=== PATIENT | female | born 1945 | race Caucasian/White ===

== ENCOUNTER 2016-11-13 00:36 | Inpatient (IN) | payer MEDICARE, MEDICAID ==
[2016-11-13] VITALS (13 sets, daily range): BP systolic 122–169; BP diastolic 53–86; PULSE 62–87; RESP 14–20; O2SAT 92–95
[~2016-11-13] VITALS: Ht 162.6 cm; Wt 91.8 kg
[~2016-11-13 00:36] MED LIST: AMLO5TAB90 PO; ASPI81TA2 PO; DICL75TA6 PO; HYDR-4150 PO; LEVO125T2 PO; METF10002 PO; METO25TA99 PO; OMEP40CA3 PO; OXYC1TAB24 PO; SENN8.8S9 PO; SITA100T PO; ZES10 PO
--- NOTE | 2016-11-13 00:42 | ED.REPORT ---
HPI-General Illness Date of Service Nov 13, 2016 ED Provider: Chris Boucher MD 71 year old female with a history of GI bleed, GERD, colitis, CAD with stent placement, and NIDDM presents to the ER via EMS after being found down for two days. Patient began vomiting "black coffee grounds" and having diarrhea two days ago while sitting on the couch, and then self-assisted to the ground. She was then too weak to move until today when she managed to crawl to the phone and call her daughter who subsequently called EMS and went to the patient's residence to assist her. Today she reports bright red blood in her stool. She denies chest pain, SOB, LOC, head pain, neck pain, and any trauma secondary to the fall. Patient is a poor historian. Nursing Notes Stated Complaint: FOUND DOWN X 2 DAYS Nursing Notes Reviewed: Yes Allergies: Coded Allergies: Penicillins (Verified Allergy, Unknown, UNKNOWN (HAS TAKEN CEPHALOSPORINS W/O PROBLEMS), 11/20/13) Sulfa (Sulfonamide Antibiotics) (Unverified Allergy, Unknown, UNKNOWN, 11/20) acetaminophen (Unverified Allergy, Unknown, UNKNOWN (FROM HYDROCODONE), 11/20/13) hydrocodone (Unverified Allergy, Unknown, UNKNOWN, 11/20/13) Scheduled AmLODIPine-Expunged Drug, Do Not Renew! (AmLODIPine-Expunged Drug, Do Not Renew! ) 5 Mg Tablet 10 MG PO DAILY Aspirin-Expunged Drug, Do Not Renew! (Aspirin-Expunged Drug, Do Not Renew!) 81 Mg Tablet 81 MG PO DAILY Diclofenac ER (Diclofenac ER) 75 Mg Tablet.dr 75 MG PO d Hydrocodone/Acetaminophen ([place] 5-325 Tablet) 1 Each Tablet 1-2 EACH PO Q 4- 6HRS PRN Levothyroxine-Expunged Drug, Do Not Renew! (Levoxyl-Expunged Drug, Do Not Renew! ) 125 Mcg Tablet 150 MCG PO DAILY Lisinopril-Expunged Drug, Do Not Renew! (Lisinopril-Expunged Drug, Do Not Renew! ) 10 Mg Tablet 10 MG PO DAILY Metoprolol Succinate ER (Metoprolol Succinate ER) 25 Mg Tab.er.24h 12.5 MG PO BID Omeprazole (Prilosec) 40 Mg Capsule.dr 40 MG PO BID Sennosides (Senexon) 8.8 Mg/5 Ml Syrup 8.8 MG PO BID PRN Sitagliptin Phosphate (Januvia) 100 Mg Tablet 100 MG PO DAILY Scheduled PRN Metformin (Metformin) 1,000 Mg Tablet 1,000 MG PO BID PRN PRN bid oxyCODONE-Acetaminophen 5-325 mg (oxyCODONE-Acetaminophen 5-325 mg) 1 Each Tablet 1-2 EACH PO Q 4-6HRS PRN PRN PRN For Pain General Time Seen by MD: 00:42 Chief Complaint Other (Found Down x2 Days) Hx Obtained From: Patient, EMS Arrived By: Ambulance Sudden in Onset?: No Onset Occurred: 2 days ago Symptom Duration: Since onset Caused by: Fall on ground Context: Occurred at: Home injury Associated with: Reports: Nausea, Vomiting, Denies: Chest pain, Shortness of breath Additional Notes: Diarrhea Bloody stool Context Related History: Reports Coronary artery disease, Reports Diabetes mellitus, Reports GERD Past Medical History Past Medical History CT Thyroid disease HTN Hyperlipidemia Colitis GERD UTI Reports: Coronary artery disease, Diabetes mellitus Reports: GI bleed Past Surgical History Cardiac stent placement x4 Left knee replacement ORIF bilateral ankles Smoking History Former Smoker Review of Systems Full Review of Systems Constitutional: Reports: Chills, Denies: Fever Respiratory: Denies: Non-productive cough, Shortness of breath Cardiovascular: Denies: Chest pain GI: Reports: Bloody/tarry stool, Diarrhea, Hematemesis ("black coffee grounds") , Hematochezia, Nausea, Vomiting, Denies: Abdominal pain Musculoskeletal: Denies: Back pain, Extremity pain, Joint pain, Lumbar pain, Neck pain, Thoracic pain Complete sys rev & neg: except as marked. Physical Exam Vital Signs Vital Signs Date Time Temp Pulse Resp B/P Pulse Ox O2 Delivery O2 Flow Rate FiO2 11/13/16 03:00 77 18 93 Room Air 11/13/16 01:30 79 18 133/65 94 Nasal Cannula 2 11/13/16 01:01 36.5 87 18 169/68 94 Room Air Initial VS: Reviewed Head / Eyes: Atraumatic, Normocephalic Neck: Supple, Non-tender, Full range of motion Extremities: Vascular intact, Neuro intact, No swelling, No tenderness Skin: Warm, Dry, No cyanosis Neurologic: Alert, Oriented, Nonfocal General/Constitutional: Awake, Alert, Well developed, Well nourished Appearance / Presentation: Positive: Pale Respiratory / Chest: Breath sounds NL, No respiratory distress, No rales, No rhonchi, No wheezing Cardiovascular: Regular rhythm, Heart sounds NL, Cap refill not delayed, Peripheral circulation NL Heart Rate / Rhythm: Positive: Tachycardia Abdomen: Soft, No guarding, No rebound Tenderness/Guarding/Rebound: Positive: Tender diffuse Interpretation & Diagnostics Lab Results Interpretation Result Diagram: 11/13/16 0116 11/13/16 0116 Test 11/13/16 01:16 White Blood Count 15.8th/mm3 (3.8-10.1) Red Blood Count 4.55mil/mm3 (3.90-5.20) Hemoglobin 13.4g/dL (12.0-15.6) Hematocrit 40.8% (35.0-46.0) Mean Corpuscular Volume 90fL (81-100) Mean Corpuscular Hemoglobin 29.5pg (27.0-35.0) Mean Corpuscular Hemoglobin Concent 32.8% (32.0-37.0) Red Cell Distribution Width 13.2% (12.3-15.4) Platelet Count 296bil/L (150-400) Neutrophils (%) (Auto) 83.8% (40-74) Lymphocytes (%) (Auto) 8.6% (14-46) Monocytes (%) (Auto) 7.2% (4-12) Eosinophils (%) (Auto) 0.1% (0-5) Basophils (%) (Auto) 0.3% (0-3) Hematology Comments Rbc Prothrombin Time 9.4sec (8.1-12.5) Prothromb Time International Ratio 0.88ratio Sodium Level 133mEq/L (134-144) Potassium Level 4.9mEq/L (3.5-5.2) Chloride Level 89mEq/L (97-108) Carbon Dioxide Level 23mmol/L (18-29) Blood Urea Nitrogen 93mg/dL (8-27) Creatinine 1.88mg/dL (0.57-1.00) Estimat Glomerular Filtration Rate 38mL/min (>59) Glucose Level 277mg/dL (60-99) Calcium Level 10.8mg/dL (8.5-10.1) Magnesium Level 3.3mg/dL (1.6-2.6) Total Bilirubin 0.6mg/dL (0.0-1.2) Aspartate Amino Transf (AST/SGOT) 49U/L (0-50) Alanine Aminotransferase (ALT/SGPT) 5U/L (0-32) Alkaline Phosphatase 136U/L (25-165) Total Creatine Kinase 356U/L (21-215) Troponin T 0.010ug/L (0.0-0.011) Total Protein 8.5g/dL (6.4-8.4) Albumin 3.6g/dL (3.4-5.0) ECG Interpretation ECG Interpretation: Atrial fibrillation, rate 80 Old anterior infarct Prolonged QT interval Time: 01:26 Interpreted by: ED physician X-Ray Chest Interpretation Chest Xray Interpretation: Left lower lobe infiltrate. View: Portable, 1 view Interpretation / Wet Read by: Wet read ED physician CT Abd / Pelvis Interpretation CONCLUSION: Findings consistent with proctocolitis. Electronically signed by Milton Varela MD Study type: Abdominal CT IV contrast Interpretation / Wet Read by: Interpret - Radiologist Re-Eval/Medical Decision Med Decision/Clinical Course 71-year-old female presents with three days of melena and coffee-ground emesis, with two days of being on the floor unable to rise. She has no evidence of rhabdomyolysis, moderate acute kidney injury apparent, and at this point, a normal hemoglobin. She remains weak and unable to get up even with some assistance. She was begun with Protonix 80 mg bolus and IV drip. As her hemoglobin is stable at this point, we can discontinue the drip and continue with high-dose Protonix. She was begun also empirically with octreotide, but will have it discontinued now also. She is admitted now to the medicine service. Consultation with GI in the morning. Transported now improved condition. Source of Hx: Old records Consultation : Referral / Consult Name: Neal Norris MD Consulted With: Hospitalist Call Returned at: 04:30 Log Handling Equipment Operator: Agrees with eval, Agrees with plan, Accepts admit Counseled Regarding: Diagnosis, Lab results, Need for admission Discharge & Departure Primary Impression: GI bleed GI bleed type/associated pathology: melena Qualified Code: K92.1 - Melena Additional Impressions: Generalized weakness Dehydration Vomiting Vomiting type: unspecified Vomiting Intractability: non-intractable Nausea presence: with nausea Qualified Code: R11.2 - Nausea with vomiting, unspecified Acute kidney injury Disposition: ADMITTED TO HOSPITAL Discharge Condition All VS Reviewed: Yes Condition: Stable Referrals: NOPCP (PCP) Scribe Attestation Portions of this note were transcribed by Yannick Lee. I, Dr. Boucher, personally performed the history, physical exam and medical decision-making; I reviewed and confirmed the accuracy of the information in the transcribed note. Signed by: Ap Gold. 11/13/2016 - 04:32 Chris Boucher MD Nov 13, 2016 00:42 YANNICK LEE Nov 13, 2016 00:58
[2016-11-13] MEDS ORDERED: 0.9% Sodium Chloride 1,000 ML IV ONE (00:56)
[2016-11-13] MEDS ORDERED: Pantoprazole Inj 80 MG, Pharmacy To Mix 1 EA in 0.9% Sodium Chloride 80 ML IV ONE ×2 (01:00)
[2016-11-13] MEDS ORDERED: Pantoprazole 4 mg/mL 10 mL Inj IVPUSH ONE (01:00)
[2016-11-13] MEDS ORDERED: Octreotide Inj 500 MCG in 0.9% Sodium Chloride 100 ML IV ONE (01:00)
[2016-11-13 01:38] LABS: INR 0.88 ratio
[2016-11-13 01:48] LABS: TROPONIN T 0.01 ug/L (0.0-0.011)
[2016-11-13 02:09] LABS: BASOPHILS % (AUTO) 0.3 % (0-3); EOSINOPHILS % (AUTO) 0.1 % (0-5); MONOCYTES % (AUTO) 7.2 % (4-12); Mean Corpuscular Hemoglobin 29.5 pg (27.0-35.0); Mean Corpuscular Volume 90 fL (81-100); NEUTROPHILS % (AUTO) 83.8 % (40-74); Platelet Count 296 bil/L (150-400)
[2016-11-13 02:10] LABS: Magnesium 3.3 mg/dL (1.6-2.6)
[2016-11-13] MEDS ORDERED: 0.9% Sodium Chloride 1,000 ML IV SCH (02:15)
[2016-11-13] MEDS ORDERED: Polyethylene Glycol (PEG) 17 Gm Powder PO PRN (04:35)
[2016-11-13] MEDS ORDERED: Ondansetron 2 mg/mL 2 mL Inj IVPUSH PRN (04:35)
[2016-11-13] MEDS ORDERED: Alum-Mag Hydrox-Simeth 30 mL Suspension PO PRN (04:35)
[2016-11-13 05:41] LABS: APPEARANCE,URINE SLIGHTLY CLOUDY (CLEAR,HAZY); COLOR,URINE DARK YELLOW (YELLOW); OCCULT BLOOD,URINE NEGATIVE (NEGATIVE); PH,URINE 5.5 (5.0-8.0); UROBILINOGEN,URINE NORMAL (NORMAL)
[2016-11-13] MEDS ORDERED: Glucose 40% Oral Gel 15 Gm Tube PO PRN (05:45)
[2016-11-13] MEDS: 0.9% Sodium Chloride 1,000 ML IV SCH ×2 (06:08→15:57)
--- NOTE | 2016-11-13 06:25 | PCM.HPMED ---
Subjective Date of Service Nov 13, 2016 Primary Provider: Admitting Physician: Neal Norris MD Primary Care Physician: Nopcp Attending Physician: Neal Norris MD Admit Status: From the Emergency Department, Full Admit, [facility] Telemetry Chief Complaint: Coffee ground vomiting with weakness History of Present Illness: Leda Moore is a 71 year old female with a history of GI bleed, GERD, Coronary artery disease with stent placement, and Diabetes presents to [facility] emergency department via EMS after being found down for two days. Patient began vomiting "black coffee grounds" and having diarrhea two days ago while sitting on the couch, and then slide to the ground. She was then too weak to move until today when she managed to crawl to the phone when her daughter was calling her. Patient also reports bright red blood in her stool. She denies chest pain, dyspnea or complete loss of consciousness and also denies any trauma secondary to the fall. Daughter then subsequently called EMS and went to the patient's residence to assist her. Denies any new medications. Lives independently. Patient reports she has not seen a doctor for years. Denies taking any NSAIDS recently or Alcohol intake Case discussed with Dr Boucher, IV fluids initiated and Protonix drip also started. Patient still weak and appeared dehydrated Review of Systems: Pertinent positives as noted in HPI. All other systems were reviewed and are negative Allergies Coded Allergies: Penicillins (Verified Allergy, Unknown, UNKNOWN (HAS TAKEN CEPHALOSPORINS W/O PROBLEMS), 11/13/16) Sulfa (Sulfonamide Antibiotics) (Unverified Allergy, Unknown, UNKNOWN, ) acetaminophen (Unverified Allergy, Unknown, UNKNOWN (FROM HYDROCODONE), 11/13/16) hydrocodone (Unverified Allergy, Unknown, UNKNOWN, 11/13/16) Home Medications Information not available PMH 1. Diabetes, type 2. 2. Hypertension. 3. Hyperlipidemia. 4. Coronary artery disease, status post [place] in June 2008 in which she was admitted for non ST elevation [place] and was treated with two drug-eluting stents of the obtuse margin branch of the circumflex, and previously had a drug-eluting stent of the 2nd obtuse marginal branch in April 2004, with mid left anterior descending interventional therapy in August 2005. Accordingly, the patient said she has had four stents total. 5. Previous heavy tobacco use, with a 30 pack-year history, which she said she quit in 2004. 6. Dyslipidemia. 7. Hypothyroidism. 8. GERD 9. history of GI bleeding, details unclear . Surgical History Cardiac stent placement x4 Left knee replacement ORIF bilateral ankles Hysterectomy. Ventral hernia repair and gastric surgery of unknown type. Family History strong family history of coronary disease. Social History Hx Alcohol Use: No Hx Substance Use: Yes (Marijuana) Hx Tobacco Use: Yes Smoking Status: Former Smoker Living Arrangement: Alone Exam Vital Signs Vital Sign - Last Date Time Temp Pulse Resp B/P Pulse Ox O2 Delivery O2 Flow Rate FiO2 11/13/16 05:21 37.2 74 16 122/86 92 Room Air 11/13/16 01:30 2 Intake and Output 11/12/16 11/12/16 11/13/16 Cumulative From/Thru 15:00 23:00 07:00 11/13/16 01:01 - 11/13/16 04:42 Intake Total 2000 ml 2000 ml Balance 2000 ml 2000 ml Intake IV Total 2000 ml 2000 ml Exam General: Alert, Oriented X3, Cooperative, No acute Distress Eyes: PERRLA, Scleral Anicteric Mouth: Mouth Normal, Mucous Membranes dry Neck: Supple, no Thyromegaly, trachea central. Chest & Lungs: Clear to auscultation & percussion, No adventitious breath sounds, no crackles, no wheeze Cardiovascular: Normal S1, Normal S2, No Murmurs/Rubs/Gallops, Regular Rate/ Rhythm, (No JVD, no peripheral edema) Pulses: Radial (present and equal), Dorsalis Pedi (present and equal) Abdomen: Soft, Non-tender, Non-distended, Normoactive bowel tones. Musculoskeletal: Unremarkable. Normal range of motion, no swollen or erythematous joints Extremities: No edema, no cyanosis, no clubbing. Skin: No rashes. Warm and dry, no erythematous areas Neurological: Grossly neurologically intact, has generalized weakness, Normal Speech, Sensation Intact Lymphatic: Lymph nodes Cervical and Axillary not palpable. Lab and Diagnostics Labs Laboratory Tests Test 11/13/16 01:16 11/13/16 04:55 White Blood Count 15.8th/mm3 (3.8-10.1) Red Blood Count 4.55mil/mm3 (3.90-5.20) Hemoglobin 13.4g/dL (12.0-15.6) Hematocrit 40.8% (35.0-46.0) Mean Corpuscular Volume 90fL (81-100) Mean Corpuscular Hemoglobin 29.5pg (27.0-35.0) Mean Corpuscular Hemoglobin Concent 32.8% (32.0-37.0) Red Cell Distribution Width 13.2% (12.3-15.4) Platelet Count 296bil/L (150-400) Neutrophils (%) (Auto) 83.8% (40-74) Lymphocytes (%) (Auto) 8.6% (14-46) Monocytes (%) (Auto) 7.2% (4-12) Eosinophils (%) (Auto) 0.1% (0-5) Basophils (%) (Auto) 0.3% (0-3) Hematology Comments Rbc Prothrombin Time 9.4sec (8.1-12.5) Prothromb Time International Ratio 0.88ratio Sodium Level 133mEq/L (134-144) Potassium Level 4.9mEq/L (3.5-5.2) Chloride Level 89mEq/L (97-108) Carbon Dioxide Level 23mmol/L (18-29) Blood Urea Nitrogen 93mg/dL (8-27) Creatinine 1.88mg/dL (0.57-1.00) Estimat Glomerular Filtration Rate 38mL/min (>59) Glucose Level 277mg/dL (60-99) Calcium Level 10.8mg/dL (8.5-10.1) Magnesium Level 3.3mg/dL (1.6-2.6) Total Bilirubin 0.6mg/dL (0.0-1.2) Aspartate Amino Transf (AST/SGOT) 49U/L (0-50) Alanine Aminotransferase (ALT/SGPT) 5U/L (0-32) Alkaline Phosphatase 136U/L (25-165) Total Creatine Kinase 356U/L (21-215) Troponin T 0.010ug/L (0.0-0.011) Total Protein 8.5g/dL (6.4-8.4) Albumin 3.6g/dL (3.4-5.0) Microbiology 11/13/16 Blood Culture, Received Pending Result Diagram: 11/13/1611511/13/16115 X-Rays, CTs and MRIs X-RAY CHEST ONE VIEW, PORTABLE 11/13 IMPRESSION: Small left basilar scarring with no significant change. No definite acute cardiopulmonary process. Dictated by: Fermin Rushing [facility] Interpreted: Dorota Rangel MD on 11/13/2016 at 8:38 Transcribed by: LINDA on 11/13/2016 at 8:54 Approved by: Dorota Rangel M.D. on 11/13/2016 at 11:10 CT ABDOMEN AND PELVIS WITHOUT CONTRAST 11/13 IMPRESSION: 1. There are postsurgical changes around the stomach. No definitive CT findings to explain upper GI bleed. 2. Probable mild colonic thickening in the distal transverse colon and proximal descending colon, suggesting mild colitis. In the absence of oral contrast, the finding could be caused by artifact. Recommend clinical correlation. 3. Perirectal right lipomatosis. This finding could be associated ulcerative colitis. Recommend clinical correlation. 4. Cholelithiasis. No evidence for acute cholecystitis. 5. Sigmoid diverticulosis. No active diverticulitis. 6. Small pericardial effusion. No significant discrepancy with the lieutenant shift supervisor radiology preliminary report. Dictated by: Dorota Rangel M.D. on 11/13/2016 at 9:09 Transcribed by: PUNEET on 11/13/2016 at 9:19 Approved by: Dorota Rangel M.D. on 11/13/2016 at 10:48 Assessment & Plan Leda Moore is a 71 year old female with a history of GI bleed, GERD, Coronary artery disease with stent placement, and Diabetes presents to [facility] emergency department via EMS after being found down 1. Possible Upper GI bleeding. Present on admission Coffee ground emesis with some melena. Suspect possible Yumi Richardson tear or Peptic ulcer disease. Evidence of Hypovolemia without any indications for blood transfusion at this time. Patient may be hemoconcentrated from dehydration - continue IV fluids - continue Protonix drip - trending H/H - consider Gastroenterology consult if bleeding continues 2. Acute Kidney Injury. Present on admission No records to determine chronicity. Suspect pre renal azotemia or BUN elevation from GI bleeding - avoid nephrotoxic insults - Urinalysis pending - consider Nephrology consult if no improvement 3. Elevated CK. Present on admission Likely represent early mild Rhabdomyolysis from prolongs time on floor - continue IV fluids - trending CK levels 4. Hyponatremia. Present on admission Due to Hypovolemia and should response to Iv fluids. Also possible due to pseudo hyponatremia from hyperglycemia - continue fluids and recheck 5. Acute Leukocytosis due to Stress. Present on admission No evidence of any infectious process at this time - monitor closely 6 Diabetes type 2. Chronic - checking A1c - medium Lispro correction algorithm - will determine outpatient regimen 7. Generalized weakness. Present on admission Multifactorial. 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 Resuscitation Status: CPR: Attempt Resuscitation Neal Norris MD Nov 13, 2016 05:35
--- NOTE | 2016-11-13 06:27 | NUR ---
admit note pt to floor, pt very week she feels like she is unable to use her legs, using slider board moved pt to bed, protonix gtt, octreotide gtt running, started NS at 100cc/hr. pt is NPO, pt denies any nausea at this time, hasn't vomited since last night, pt c/o abd cramping on and off, pt on 2L NC, tele SR rate 70s, randhawa was placed in ED, draining dark fátima urine, pt unable to state her medications, she says she takes some some of the time but hasn't seen a doctor in years, in room and unsure how much truth that is, pt states she uses [facility] to fill Rx. Addendum: 11/13/16 at 0635 by SOPHIA BANEGAS RN herbert Rodriguez for Rx
[2016-11-13] MEDS: Insulin LISPRO 300 Unit/3 mL Inj SUBQ SCH ×4 (08:00→22:00)
[2016-11-13 08:03] LABS: Mean Corpuscular Hemoglobin 29.6 pg (27.0-35.0); Mean Corpuscular Volume 88.6 fL (81-100)
[2016-11-13] MEDS ORDERED: Heparin 5,000 Unit/mL Inj SUBQ SCH (08:30)
--- NOTE | 2016-11-13 08:54 | DRSVH ---
PROCEDURE: X-RAY CHEST ONE VIEW, PORTABLE ([id number]) INDICATIONS: ugi bleed TECHNIQUE: One view of the chest was acquired. COMPARISON: [facility], CR, CHEST 2VW, 10/13/2014, 14:10. [facility], CR, XR CHEST 2V AP/PA AND LAT, 11/08/2016, 4:23 PM. [facility], CR, CHEST 1VW (PORTABLE), , 8:07. FINDINGS: Surgical changes and devices: Epigastric surgical clips. Lungs and pleura: Aside from technique differences, no significant interval change in left lung base scarring. The lungs otherwise are clear. No pneumothorax. Mediastinum: Mediastinal contours appear normal. Heart size is normal. Bones and chest wall: No suspicious bony lesion.rlying soft tissues appear unremarkable. IMPRESSION: Small left basilar scarring with no significant change. No definite acute cardiopulmona ry process. Dictated by: Fermin BRYANT Interpreted: Dorota Rangel MD on 11/13/2016 at 8:38 Transcribed by: LINDA on 11/13/2016 at 8:54 Approved by: Dorota Rangel M.D. on 11/13/2016 at 11:10
--- NOTE | 2016-11-13 09:19 | DRSVH ---
PROCEDURE: CT ABDOMEN AND PELVIS WITHOUT CONTRAST ([id number]) INDICATIONS: Upper GI bleed and generalized abdominal pain. TECHNIQUE: Noncontrast 5 mm thick sections acquired from the diaphragms to the symphysis. 5 mm coronal and sagi ttal reformats were then performed. For radiation dose reduction, the following was used: automated exposure control, adjustment of mA and/or kV according to patient size. COMPARISON: [facility], CT, ABD/PELVIS W/O CON (PN), 12/24/2014, 10:25. FINDINGS: Image quality: Excellent. ABDOMEN: Lung bases: Lung bases are clear. Heart size is normal. There is a small pericardial effusion. The re is a small hiatal hernia. Solid organs: Liver and spleen are normal in size. Gallbladder contains gallstones. Pancreas is no rmal in contours. No adrenal nodules. Kidneys are normal in size, without hydronephrosis or nephrol ithiasis. Peritoneum and bowel: Multiple surgical clips are present in the epigastric region and gastroesophag eal junction. There are numerous colonic diverticula in sigmoid colon. No evidence for active diverti culitis. Unenhanced bowel loops demonstrate normal caliber. Probable mild colonic thickening is note d in the distal transverse colon and proximal descending colon. There is prominent perirectal fat con sistent with lipomatosis. A small amount of free fluid is present. No free air. Nodes and vessels: No retroperitoneal or mesenteric adenopathy by size criteria. Aorta and inferior vena cava are normal in caliber. Aortic calcification consistent with atherosclerosis. Miscellaneous: There are post surgical changes related to ventral hernia repair. PELVIS: Genitourinary: Bladder wall thickness is normal. Miscellaneous: No inguinal hernias or adenopathy. Bones: No suspicious bony lesions. No vertebral body compression fractures. IMPRESSION: 1. There are postsurgical changes around the stomach. No definitive CT findings to explain upper GI b leed. 2. Probable mild colonic thickening in the distal transverse colon and proximal descending colon, sug gesting mild colitis. In the absence of oral contrast, the finding could be caused by artifact. Recom mend clinical correlation. 3. Perirectal right lipomatosis. This finding could be associated ulcerative colitis. Recommend clini cara correlation. 4. Cholelithiasis. No evidence for acute cholecystitis. 5. Sigmoid diverticulosis. No active diverticulitis. 6. Small pericardial effusion. No significant discrepancy with the supervisor hide house radiology preliminary report. Dictated by: Dorota Rangel M.D. on 11/13/2016 at 9:09 Transcribed by: PUNEET on 11/13/2016 at 9:19 Approved by: Dorota Rangel M.D. on 11/13/2016 at 10:48
[2016-11-13] MEDS ORDERED: ALBU8.5H2 INHALATION (12:08)
--- NOTE | 2016-11-13 12:15 | NUR ---
Evaluation completed. Please go to "Notes" then click on "Assessments and Notes" (bottom left corner of screen). Then select appropriate discipline tab on top of screen.
[2016-11-13] MEDS ORDERED: DOCU250C2 PO ×2 (12:27→19:19)
[2016-11-13] MEDS ORDERED: TRAM50TA2 PO (12:27)
[2016-11-13] MEDS ORDERED: SITA50TA PO (12:27)
[2016-11-13] MEDS ORDERED: LIP40 PO (12:27)
[2016-11-13] MEDS ORDERED: NITR0.3T6 SL (12:27)
[2016-11-13] MEDS ORDERED: OXYB5TAB10 PO (12:27)
[2016-11-13] MEDS ORDERED: CLOP75TA28 PO (12:27)
[2016-11-13] MEDS ORDERED: OXYB5TAB35 PO (12:27)
[2016-11-13] MEDS ORDERED: [UNRECOGNIZED DRUG - CODE] PO (12:27)
[2016-11-13] MEDS ORDERED: OXYB5TAB PO (12:27)
[2016-11-13] MEDS ORDERED: CARV6.252 PO (12:27)
[2016-11-13] MEDS ORDERED: CHOL10008 PO (12:27)
[2016-11-13] MEDS ORDERED: INSU100I13 SUBQ (12:27)
[2016-11-13] MEDS ORDERED: SODI650T PO (12:27)
[2016-11-13] MEDS ORDERED: ISOS30TA4 PO (12:27)
[2016-11-13] MEDS ORDERED: TAMS0.4C98 PO (12:27)
[2016-11-13] MEDS ORDERED: LEVO112T4 PO (12:27)
[2016-11-13] MEDS ORDERED: OMEP20CA11 PO (12:27)
[2016-11-13] MEDS ORDERED: MTC5T PO (12:27)
[2016-11-13] MEDS ORDERED: LISI10TA PO (12:35)
[2016-11-13] MEDS ORDERED: ASPI-973 PO (12:37)
[2016-11-13] MEDS ORDERED: AMLO10TA3 PO (12:37)
[2016-11-13] MEDS: Pantoprazole 8 mg/Hr Infusion IV SCH ×4 (13:10→22:18)
--- NOTE | 2016-11-13 14:25 | NUR ---
Med Rec Med list obtained from patients PCP. Med rec completed and MD notified.
[2016-11-13 14:51] LABS: Unsaturated Iron Binding 191.8 ug/dL
--- NOTE | 2016-11-13 15:44 | NUR ---
Social Work: Initial Assessment Data: Pt is a 71 y/o female admited for upper GI bleed dehydration weakness. Pt's PCP is not listed. Pt's insurance is [employer]. EMR reviewed, readmit score not listed. ORANGE PICKER met with pt at bedside, role explained. Pt states she lives alone in [place] in a single story home where she uses no DME. Pt states she drives, has hx of HH, none with SNF, no LTC or VA benefits, and is not a caregiver. PT ordered to see pt. ORANGE PICKER will f/u post PT evaluation. Assessment: Pt who is independent at baseline. Plan: ORANGE PICKER will follow up post PT evaluation, likely HH or SNF need for pt. ORANGE PICKER will continue to follow. STEPHEN Muñoz Addendum: 11/13/16 at 1547 by AILYN BALES Amended: Links added.
--- NOTE | 2016-11-13 17:47 | NUR ---
Activity Patient somnolent through shift, but easily aroused by verbal stimuli. A&Ox3. VSS. 1 PA to bedside commode. Denies pain/discomfort. One very small liquid stool that was pink tinged. No episodes of emesis this shift. Call light within patient reach.
[2016-11-13] MEDS ORDERED: HYDR-4003 PO (19:13)
[2016-11-13] MEDS ORDERED: NITR0.4T6 SL (19:18)
--- NOTE | 2016-11-13 19:24 | PCM.PNMED ---
Subjective Date of Service Nov 13, 2016 Subjective Overnight: No acute events since admission Today: The patient denies any abdominal pain at this time. She reiterates that she has vomited multiple times and states that it has been black and coffee ground in consistency. She also states that she has had bright red blood in her stool. The patient was seen several years ago for similar presentation where EGD was performed. Review of records indicate the patient had a gastropathy with recommendations to follow back in 3 years unless return of symptoms. Exam Vital Signs Vital Sign - Last Date Time Temp Pulse Resp B/P Pulse Ox O2 Delivery O2 Flow Rate FiO2 11/13/16 15:48 Supplement Oxygen 11/13/16 15:48 37.1 63 14 142/60 94 2.00 Intake and Output 11/12/16 11/12/16 11/13/16 Cumulative From/Thru 15:00 23:00 07:00 11/13/16 01:01 - 11/13/16 05:48 Intake Total 2000 ml 2000 ml Balance 2000 ml 2000 ml IV Total 2000 ml 2000 ml Exam General: Alert, Oriented X3, Cooperative, No acute Distress Eyes: PERRLA, Scleral Anicteric, noninjected conjunctiva HENT: Normocephalic atraumatic, moist mucous membranes without central cyanosis , no cobblestoning mucosa noted Neck: Supple, no Thyromegaly, trachea central. Cardiovascular: Normal S1, Normal S2, No Murmurs/Rubs/Gallops, Regular Rate/ Rhythm, (No JVD, no peripheral edema) Lungs: Clear to auscultation & percussion, No adventitious breath sounds, no crackles, no wheeze Abdomen: Soft, Non-tender, Non-distended, Normoactive bowel tones, patient has a noted sagittally oriented ventral laparotomy scar with different consistencies above and below the umbilicus consistent with separate surgeries Musculoskeletal: Unremarkable. Normal range of motion, no swollen or erythematous joints Extremities: Pulses intact at the radial and dorsalis pedis bilaterally, No edema, no cyanosis, no clubbing. Skin: No rashes. Warm and dry, no erythematous areas Neurological: Grossly neurologically intact, has generalized weakness, Normal Speech, Sensation Intact Lymphatic: Lymph nodes Cervical and Axillary not palpable. Lab and Diagnostics Result Diagram: 11/13/16 1353 11/13/16 9712 X-Rays, CTs and MRIs X-RAY CHEST ONE VIEW, PORTABLE 11/13 IMPRESSION: Small left basilar scarring with no significant change. No definite acute cardiopulmonary process. Dictated by: Fermin Rushing [facility] Interpreted: Dorota Rangel MD on 11/13/2016 at 8:38 Transcribed by: LINDA on 11/13/2016 at 8:54 Approved by: Dorota Rangel M.D. on 11/13/2016 at 11:10 CT ABDOMEN AND PELVIS WITHOUT CONTRAST 11/13 IMPRESSION: 1. There are postsurgical changes around the stomach. No definitive CT findings to explain upper GI bleed. 2. Probable mild colonic thickening in the distal transverse colon and proximal descending colon, suggesting mild colitis. In the absence of oral contrast, the finding could be caused by artifact. Recommend clinical correlation. 3. Perirectal right lipomatosis. This finding could be associated ulcerative colitis. Recommend clinical correlation. 4. Cholelithiasis. No evidence for acute cholecystitis. 5. Sigmoid diverticulosis. No active diverticulitis. 6. Small pericardial effusion. No significant discrepancy with the night coordinator radiology preliminary report. Dictated by: Dorota Rangel M.D. on 11/13/2016 at 9:09 Transcribed by: PUNEET on 11/13/2016 at 9:19 Approved by: Dorota Rangel M.D. on 11/13/2016 at 10:48 Additional Diagnostics Assessment & Plan Leda Moore is a 71 year old female with a history of GI bleed, GERD, Coronary artery disease with stent placement, and Diabetes presents to [facility] emergency department via EMS after being found down. Hospital Day 1 1. Possible Upper GI bleeding. Present on admission, under evaluation - Patient reports Coffee ground emesis with some melena. Suspect probable gastropathy based off of previous EGD results also possible Yumi Richardson tear or less likely Peptic ulcer disease. - Evidence of Hypovolemia without any indications for blood transfusion at this time. Patient may be hemoconcentrated from dehydration - Patient had a significant drop in hemoglobin with 2 L bolus IV fluids, however hemoglobin remained stable for several hours while on a regular rate and 100 mL per hour - continue IV fluids - continue Protonix drip - trending H/H - consider Gastroenterology consult based off of previous EGD in [facility] 2. Acute blood loss anemia, not present on admission, stable - Patient reports both dark coffee ground hematemesis and hematochezia, which is consistent with 2 sources of bleeding - Patient appears hemoconcentrated at admission with significant dehydration and acute kidney disease secondary to prerenal azotemia - Patient had a significant drop in hemoglobin with 2 L bolus IV fluids, however hemoglobin remained stable for several hours while on a regular rate and 100 mL per hour - Continue to monitor hemoglobin levels - Consider GI consult 3. Acute Kidney Injury. Present on admission, treated improving - No records to determine chronicity. Suspect pre renal azotemia or BUN elevation from GI bleeding - avoid nephrotoxic insults - Urinalysis pending - consider Nephrology consult if no improvement 4. Elevated creatinine kinase, present on admission, improved - Likely represent early mild Rhabdomyolysis from prolongs time on floor - continue IV fluids - trending CK levels 5. Acute Leukocytosis. Present on admission, under evaluation - No evidence of any infectious process at this time - Likely due to Stress - monitor closely 6 Diabetes mellitus type 2, present on admission, chronic - checking A1c - medium Lispro correction algorithm 7. Generalized weakness. Present on admission - Multifactorial. 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 Hyponatremia. Present on admission - Due to Hypovolemia and should response to Iv fluids. Also possible due to pseudo hyponatremia from hyperglycemia - continue fluids and recheck - Acetaminophen as needed for mild pain/fever/headache - Bowel regimen as needed - Antiemetic as needed Disposition: Patient will likely remain inpatient for the next 1-2 days while evaluating possible GI bleed. Pain Evaluation: Adequate Pain Control GI Prophylaxis: Proton Pump Inhibitor VTE Prophylaxis: SCDs VTE Mechanical Devices: Intermittant Pneumatic CD Resuscitation Status: CPR: Attempt Resuscitation Time spent 1 hour Attending Statement The patient was seen and examined together with Dr. Sorto on 11/13/16 and I agree with the history, exam and plan as outlined in the note above. Germain Velasquez DO Nov 13, 2016 19:24 Alexia Hanson DO Nov 14, 2016 15:44
[2016-11-13] MEDS ORDERED: SENN-133 PO (19:26)
[2016-11-13] MEDS ORDERED: POLY17PO2 PO (19:26)
[2016-11-14] VITALS (7 sets, daily range): BP systolic 137–150; BP diastolic 57–71; PULSE 65–76; RESP 18–20; O2SAT 91–96
[2016-11-14] MEDS: 0.9% Sodium Chloride 1,000 ML IV SCH ×2 (01:46→12:02)
[2016-11-14 04:29] LABS: BASOPHILS % (AUTO) 0.2 % (0-3); EOSINOPHILS % (AUTO) 1.6 % (0-5); Mean Corpuscular Hemoglobin 29.3 pg (27.0-35.0); Mean Corpuscular Volume 93.4 fL (81-100); NEUTROPHILS % (AUTO) 67.4 % (40-74); Platelet Count 198 bil/L (150-400)
--- NOTE | 2016-11-14 06:08 | NUR ---
Nausea/NPO/Insomnia C/O nausea , paged Resident , reluctant to prescribe antiemetic due to QT prolongation, , OK with sips and chips Pt NPO pending GI status evaluation , restless most of the night, A&O x3,using call light appropriately, no C/O pain, NS @ 100, Protonix @ 10, , 2 L O2 per NC. Raymond catheter draing fátima urine to gravity . Telemetry: [id number]
[2016-11-14 07:11] LABS: Vitamin B12 >1999 pg/mL (211-946)
[2016-11-14] MEDS: Insulin LISPRO 300 Unit/3 mL Inj SUBQ SCH ×4 (08:00→22:00)
[2016-11-14] MEDS: Pantoprazole 8 mg/Hr Infusion IV SCH ×2 (09:45)
--- NOTE | 2016-11-14 10:17 | NUR ---
Loose stools Pt up to [facility] several times this am. Loose stools. No signs of bleeding. Pt stated bottom sore, applied baby powder, pt relieved. notified. Care continues.
--- NOTE | 2016-11-14 15:30 | NUR ---
Bowel movement MARINE ERECTOR reported some streaks of bright red blood in stool. Pt stated having pain on wiping. Unable to get stool sample this time around. Pt, MARINE ERECTOR and this RN aware stool sample needs to be taken. Care continues.
--- NOTE | 2016-11-14 15:38 | PCM.PROC ---
Procedure Note Date of Service: Nov 14, 2016 Procedure: Procedure: Osteopathic Manipulative Treatment Subjective: The patient complains of low back pain stating that the pain is a 10 /10. Patient states that nothing seems to alleviate the pain however moving around seems to aggravate it. Risks and benefits of OMT were explained to the patient and verbal consent obtained. Osteopathic Structural Exam: Thoracics: T6 to T8 paraspinal hypertonicity on the right greater than left Lumbars: N1LElOt, L4 ERlSl Abdomen: Diaphragm hypertonicity on the right Pelvis: Anterior right innominate Sacrum: SI joint restriction on the left greater than right Upper extremities: Latissimus dorsi hypertonicity on the right greater than left Lower extremities: Psoas hypertonicity last tender point on the right Patient responded well to treatment. Treatment patient stated that her pain decreased to a 2 out of 10 after treatment. Osteopathic treatment modalities used: Myofascial release, BLT, visceral technique and soft tissue technique Alexia Hanson DO Nov 14, 2016 15:38
--- NOTE | 2016-11-14 15:39 | NUR ---
Social Work Note: Continued Discharge Planning Data& Assessment: SW met with pt at bedside to discuss discharge planning. Per PT, pt requires SNF at time of discharge. SW provided pt with SNF list. Pt explained she has pets at home and she would think about it. SW discussed home health with pt as well. Pt requested time to think about what she would like to do. SW confirmed with [facility] that they would be able to accept pt insurance coverage and go out to [place] where pt lives. SW to follow up with pt regarding SNF vs. HH. SW to continue to follow. Plan: Anticipated discharge home with home health vs. SNF. SW to follow up with pt regarding SNF vs. HH. SW to continue to follow. STEPHEN Vargas
--- NOTE | 2016-11-14 19:33 | PCM.PNMED ---
Subjective Date of Service Nov 14, 2016 Subjective overnight: Patient became nauseous overnight which improved with ice chips. No acute events otherwise noted Today: Patient complains of lower back pain which started today and appears to be worse with movement. Osteopathic manipulative medicine used to treat with significant improvement noted. The patient denies any blood in her diarrhea but states that her diarrhea has continued today. The patient denies any nausea at this point. Records were attempted to be obtained from her PCP and [facility] for possible colonoscopy, no records exist since 2007 however patient insists that she has had one at [facility]. The patient was not aware that her PCP had retired in July. Exam Vital Signs Vital Sign - Last Date Time Temp Pulse Resp B/P Pulse Ox O2 Delivery O2 Flow Rate FiO2 11/14/16 03:01 37.3 65 20 148/57 93 Nasal Cannula 1.00 Intake and Output 11/13/16 11/13/16 11/14/16 Cumulative From/Thru 15:00 23:00 07:00 11/13/16 01:01 - 11/14/16 06:06 Intake Total 1262 ml 1365 ml 4627 ml Output Total 1450 ml 1000 ml 2450 ml Balance -188 ml 365 ml 2177 ml Intake Oral 0 ml 0 ml 0 ml IV Total 1262 ml 1365 ml 4627 ml Output Urine Total 1450 ml 1000 ml 2450 ml # Bowel Movements 1 0 1 Exam General: Obese elderly female appearing older than stated age Alert, Oriented X3, Cooperative, No acute Distress Eyes: PERRLA, Scleral Anicteric, noninjected conjunctiva HENT: Normocephalic atraumatic, moist mucous membranes without central cyanosis , no cobblestoning mucosa noted Neck: Supple, no Thyromegaly, trachea central. Cardiovascular: Normal S1, Normal S2, No Murmurs/Rubs/Gallops, Regular Rate/ Rhythm, (No JVD, no peripheral edema) Lungs: Clear to auscultation & percussion, No adventitious breath sounds, no crackles, no wheeze Abdomen: Soft, Non-tender, Non-distended, Normoactive bowel tones, patient has a noted sagittally oriented ventral laparotomy scar with different consistencies above and below the umbilicus consistent secondary to separate surgeries Back:Thoracics: T6 to T8 paraspinal hypertonicity on the right greater than left. Lumbars: [id number], L4 ERlSl. Sacrum: SI joint restriction on the left greater than right Musculoskeletal: Unremarkable. Normal range of motion, no swollen or erythematous joints Extremities: Pulses intact at the radial and dorsalis pedis bilaterally, No edema, no cyanosis, no clubbing. Skin: No rashes. Warm and dry, no erythematous areas Neurological: Grossly neurologically intact, has generalized weakness, Normal Speech, Sensation Intact Lymphatic: Lymph nodes Cervical and Axillary not palpable. : No randhawa in place IVs and Medications Medications Reviewed: Medications were reviewed in detail Lab and Diagnostics Result Diagram: 11/14/16 0256 11/14/16255 Microbiology Stool biofire ordered not done X-Rays, CTs and MRIs X-RAY CHEST ONE VIEW, PORTABLE 11/13 IMPRESSION: Small left basilar scarring with no significant change. No definite acute cardiopulmonary process. Dictated by: Fermin Rushing [facility] Interpreted: Dorota Rangel MD on 11/13/2016 at 8:38 Transcribed by: LINDA on 11/13/2016 at 8:54 Approved by: Dorota Rangel M.D. on 11/13/2016 at 11:10 CT ABDOMEN AND PELVIS WITHOUT CONTRAST 11/13 IMPRESSION: 1. There are postsurgical changes around the stomach. No definitive CT findings to explain upper GI bleed. 2. Probable mild colonic thickening in the distal transverse colon and proximal descending colon, suggesting mild colitis. In the absence of oral contrast, the finding could be caused by artifact. Recommend clinical correlation. 3. Perirectal right lipomatosis. This finding could be associated ulcerative colitis. Recommend clinical correlation. 4. Cholelithiasis. No evidence for acute cholecystitis. 5. Sigmoid diverticulosis. No active diverticulitis. 6. Small pericardial effusion. No significant discrepancy with the warehouse shift supervisor radiology preliminary report. Dictated by: Dorota Rangel M.D. on 11/13/2016 at 9:09 Transcribed by: PUNEET on 11/13/2016 at 9:19 Approved by: Dorota Rangel M.D. on 11/13/2016 at 10:48 Additional Diagnostics EGD performed in 2011 FINDINGS: 1. Mild gastritis. Biopsies obtained and submitted to pathology. 2. Small hiatal hernia. RECOMMENDATIONS: No obvious source of her left abdominal pain was identified. The patient will continue proton pump inhibitor therapy. I have encouraged her to lose weight. In regards to surveillance followup, the patient should not require followup upper GI endoscopy for two to three years unless she develops symptoms which warrant examination sooner. Pipe Valera MD Electronically Authenticated by: Pipe Valera MD 01/21/2012 14:56:05 [place] Assessment & Plan Leda Moore is a 71 year old female with a history of GI bleed, GERD, Coronary artery disease with stent placement, and Diabetes presents to [facility] emergency department via EMS after being found down. Hospital Day 2 1. Possible Upper GI bleeding. Present on admission, under evaluation - Patient reports Coffee ground emesis with some melena. Suspect probable gastropathy based off of previous EGD results also possible Ymui Richardson tear or less likely Peptic ulcer disease. - Evidence of Hypovolemia without any indications for blood transfusion at this time. Patient may be hemoconcentrated from dehydration - Patient had a significant drop in hemoglobin with 2 L bolus IV fluids, however hemoglobin remained stable for several hours while on a regular rate and 100 mL per hour - continue IV fluids - discontinue Protonix drip on 11/14 and start Protonix 40 mg twice a day - Continue trending H/H - Gastroenterology consulted will see patient on 11/15 2. Acute blood loss anemia, not present on admission, stable - Patient reports both dark coffee ground hematemesis and hematochezia, which is consistent with 2 sources of bleeding - Patient appears hemoconcentrated at admission with significant dehydration and acute kidney disease secondary to prerenal azotemia - Patient had a significant drop in hemoglobin with 2 L bolus IV fluids, however hemoglobin remained stable for several hours while on a regular rate and 100 mL per hour - Anemia panel fails to show iron deficiency, GI blood loss likely not a significantly chronic problem - Continue to monitor hemoglobin levels - GI consult - initially held aspirin and clopidogrel for first 2 days, will restart enteric- coated baby aspirin with breakfast on 11/15 3. Acute Kidney Injury on chronic kidney disease. Present on admission, treated improving - Records obtained from primary care physician at [facility] in [place] show chronic kidney disease with recommendations for nephrology consultation - Suspect pre renal azotemia for acute kidney injury - Suspect combination of diabetic nephropathy versus hypertensive damage given type II diabetes and history of hypertension and coronary artery disease - avoid nephrotoxic insults - Urinalysis positive for blood and protein - Nephrology consulted for 11/15 - Restart outpatient tamsulosin and oxybutynin for possible urinary retention and overactive bladder - Holding outpatient lisinopril 4. Elevated creatinine kinase, present on admission, improved - Likely represent early mild Rhabdomyolysis from prolonged time on floor - continue IV fluids - trending CK levels 5. Acute Leukocytosis. Present on admission, under evaluation - No evidence of any infectious process at this time - Patient reports diarrhea, CT abdomen shows thickening of the colon consistent with possible colitis, as well as lipomatosis and sigmoid diverticulosis - Stool biofire negative (final report on 11/14/16) - monitor closely - GI consulted 11/15 6 Diabetes mellitus type 2, present on admission, chronic - A1c 8.6 - Holding home med sitagliptin - Continue home Lantus 16 units at bedtime - medium Lispro correction algorithm 7. Generalized weakness. Present on admission - Multifactorial. 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 Hyponatremia. Present on admission - Due to Hypovolemia and should response to Iv fluids. - continue fluids and recheck 9. History of coronary artery disease, present on admission, chronic - Patient with 4 stents placed total last in 2007 - Initially held baby aspirin and clopidogrel - We will restart baby aspirin 11/15 - Restart home statin medication 10. History of Chronic pain, present on admission - Med rec shows oxycodone/acetaminophen - Osteopathic manipulative medicine performed on 11/14/2016 - Restart outpatient Oxycodone 5 mg available every 8 hours 11. Hypothyroidism, present on admission, chronic - Restart outpatient levothyroxine 112 g daily 12. Hypertension, present on admission, chronic - Restart home clopidogrel - Bowel regimen as needed - Antiemetic as needed Disposition: Patient will likely remain inpatient for the next 1-2 days while evaluating possible GI bleed. GI Prophylaxis: Proton Pump Inhibitor VTE Prophylaxis: SCDs VTE Mechanical Devices: Intermittant Pneumatic CD Resuscitation Status: CPR: Attempt Resuscitation Time spent 30 minutes Attending Statement The patient was seen and examined together with Dr. Sorto on 11/14/16 and I have added additional information to the note above. Germain Velasquez DO Nov 14, 2016 06:59 Alexia Hanson DO Nov 15, 2016 13:34
[2016-11-14] MEDS: Pantoprazole 40 mg ER24 Tablet PO SCH (20:11)
[2016-11-14] MEDS: Insulin GLARgine 100 Unit/mL Syringe SUBQ SCH (22:24)
[2016-11-15] VITALS (8 sets, daily range): BP systolic 119–135; BP diastolic 49–76; PULSE 59–84; RESP 16–20; O2SAT 90–98
--- NOTE | 2016-11-15 02:08 | NUR ---
Voiding/Stool/Pain Has voided post Raymond removal, has not had sufficient stool for sample as ordered. has C/O 6-8/10 pain, gave 5 Mg Hydrocodone was effective for pain control. withheld HS sliding scale , bedside glucose 187. Gave ordered 16 U Lantus. On room satting mid to high 90's as opposed to 1.5 L NC of previous shifts. Removed IV from rt Arm, was leaking and occluded .Saline locked in left arm flushing freely. Tele: SR [id number].
[2016-11-15 08:00] LABS: Mean Corpuscular Hemoglobin 29.4 pg (27.0-35.0); Mean Corpuscular Volume 91.1 fL (81-100); Platelet Count 195 bil/L (150-400)
[2016-11-15] MEDS: Insulin LISPRO 300 Unit/3 mL Inj SUBQ SCH ×4 (08:00→21:25)
[2016-11-15 08:41] LABS: BASOPHILS % (AUTO) 1 % (0-3); EOSINOPHILS % (AUTO) 2 % (0-5); MONOCYTES % (AUTO) 11 % (4-12); NEUTROPHILS % (AUTO) 64 % (40-74)
[2016-11-15] MEDS: Pantoprazole 40 mg ER24 Tablet PO SCH ×2 (09:13→17:40)
[2016-11-15] MEDS: Isosorbide Mononitrate 30 mg ER24 Tablet PO SCH (09:13)
--- NOTE | 2016-11-15 09:25 | NUR ---
Stool Pt continues to have bouts of loose stools. Encouraged applesauce and fluids. MD notified. Care continues.
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
--- NOTE | 2016-11-15 12:58 | NUR ---
Call light Pt incontinent of stool and urine. Call light in reach. STUNT DRIVER and RN remind pt to use call light. BSC at side of bed, pt able to use BSC with SBA, when STUNT DRIVER ortho tech remind pt to get up to void. Notes on board to use call light to void. Care continues.
--- NOTE | 2016-11-15 13:21 | NUR ---
Change in mentation and LOC Pt having difficult time recalling children's names, their ages. Pt delayed response in answering questions. Does not remember animal names. Stops talking mid sentence, forgets train of thought. Roxycodone given at approximately [address] per [address] Velasquez orders. Notified MD. Care continues.
--- NOTE | 2016-11-15 14:07 | NUR ---
NUTRITION ASSESSMENT: ASSESS: Pt is a 71yo F admitted for possible upper GI bleed. GI saw pt today and is planning on EGD/colonoscopy for 11/16. She will be NPO at midnight. Pt was on Diabetic diet x1 day with PO 25-50% and is currently on CL diet in prep for colonoscopy. She continues to experience loose stool. PMHX: T2DM, HTN, HLD, CAD, Dyslipidemia, GERD, CKD LABS: Reviewed. Bun 60, Build Technician 1.59, Glu 109, Ca 8.3, Alb 2.5 MEDS: Reviewed. Lantus GI: loose stool, BMx1 11/14 SKIN: Wilfrid 16 CURRENT WTS: 96.2kg, BMI 36.4kg/m2, admit wt 96.2kg, IBW 54.4kg DIET: Diabetic, PO 25-50%. Pt currently on CL in prep for colonoscopy. EST. NEEDS: BMI/ MAURICE Kcals: 1925-2115kcal/day (20-22kcal/kg) Pro: 55-65g/day (1.0-1.2g/kg IBW) NUTRITION DIAGNOSIS: 1.) Altered GI function related to unknown etiology as evidence by reported nausea, loose stool, CL diet order and need for colonoscopy per GI NUTRITION INTERVENTION: 1.) Will continue to monitor PO intake and possible need for supplementation post-colonoscopy MONITOR / EVAL: PO, diet tolerance/advc, GI, wt, labs, POC, nutrition status. Will continue to monitor per moderate nutrition risk guidelines.
--- NOTE | 2016-11-15 15:06 | NUR ---
Social Work: Continued Discharge Planning D: Pt discussed in am rounds. Pt is not medically stable for discharge. Pt anticipated to go for GI Scope tomorrow. Pt has been working with PT. Current recommendation is for SNF as pt is ambulating 25-50 feet with FWW. Per PT notes, pt is declining SNF and wishes to go home with HH. DIETETIC ASSISTANT met with pt at bedside to review discharge recommendations and services. Pt continues to decline SNF but is agreeable to HH. HH CHOICE LIST PROVIDED to pt. Pt has no preference for [facility] Referral will be made to [facility] per Vendor Calendar. t/c to Jonn Matt with [facility] to provide referral; access provided. F2F in folder. A: Pt who lives at home, alone. P: Anticipate pt to discharge home via POV with [facility] for RN, PT. DIETETIC ASSISTANT to continue to follow STEPHEN Gray
[2016-11-15] MEDS ORDERED: PEG/Electrolytes 4,000 mL Solution PO ONE (15:30)
--- NOTE | 2016-11-15 16:03 | PCM.PNMED ---
Subjective Date of Service Nov 15, 2016 Subjective overnight: No acute events noted overnight. The patient was given a single 5 mg oxycodone without issue with improved pain. Today: Gastroenterology has seen the patient and will take her for EGD and colonoscopy on 11/16/2016. The patient states that she has continued to have diarrhea. Stool biofire PCR for pathology returned back negative for infectious etiology. The patient was given a oxycodone 5 mg which resulted in a significant decline in mentation per nursing reports. Patient will need to be controlled with another method in the future, and recommendations will be put in place for the family to remove patient's home Percocet prescription. Exam Vital Signs Vital Sign - Last Date Time Temp Pulse Resp B/P Pulse Ox O2 Delivery O2 Flow Rate FiO2 11/15/16 04:56 84 11/15/16 03:21 37.2 20 122/65 90 Nasal Cannula 1.00 Intake and Output 11/14/16 11/14/16 11/15/16 Cumulative From/Thru 15:00 23:00 07:00 11/13/16 01:01 - 11/15/16 05:02 Intake Total 120 ml 490 ml 800 ml 6037 ml Output Total 1700 ml 4150 ml Balance 120 ml -1210 ml 800 ml 1887 ml Intake Oral 490 ml 800 ml 1290 ml IV Total 120 ml 4747 ml Output Urine Total 1700 ml 4150 ml # Voids 4 4 # Bowel Movements 1 2 4 Exam General: Obese elderly female appearing older than stated age Alert, Oriented X3, Cooperative, No acute Distress Eyes: PERRLA, Scleral Anicteric, noninjected conjunctiva HENT: Normocephalic atraumatic, moist mucous membranes without central cyanosis , no cobblestoning mucosa noted, noted hirsutism around her chin Neck: Supple, no Thyromegaly, trachea central. Cardiovascular: Normal S1, Normal S2, No Murmurs/Rubs/Gallops, Regular Rate/ Rhythm, (No JVD, no peripheral edema) Lungs: Clear to auscultation & percussion, No adventitious breath sounds, no crackles, no wheeze Abdomen: Soft, Non-tender, Non-distended, Normoactive bowel tones, patient has a noted sagittally oriented ventral laparotomy scar with different consistencies above and below the umbilicus consistent secondary to separate surgeries Musculoskeletal: Unremarkable. Normal range of motion, no swollen or erythematous joints Extremities: Pulses intact at the radial and dorsalis pedis bilaterally, No edema, no cyanosis, no clubbing. Skin: No rashes. Warm and dry, no erythematous areas, tattoo noted on left forearm Neurological: Grossly neurologically intact, has generalized weakness, Normal Speech, Sensation Intact Lymphatic: Lymph nodes Cervical and Axillary not palpable. : No randhawa in place IVs and Medications Medications Reviewed: Medications were reviewed in detail Lab and Diagnostics Result Diagram: 11/14/16 02511/14/16255 Microbiology Stool biofire negative for pathology X-Rays, CTs and MRIs X-RAY CHEST ONE VIEW, PORTABLE 11/13 IMPRESSION: Small left basilar scarring with no significant change. No definite acute cardiopulmonary process. Dictated by: Fermin BRYANT Interpreted: Dorota Rangel MD on 11/13/2016 at 8:38 Transcribed by: LINDA on 11/13/2016 at 8:54 Approved by: Dorota Rangel M.D. on 11/13/2016 at 11:10 CT ABDOMEN AND PELVIS WITHOUT CONTRAST 11/13 IMPRESSION: 1. There are postsurgical changes around the stomach. No definitive CT findings to explain upper GI bleed. 2. Probable mild colonic thickening in the distal transverse colon and proximal descending colon, suggesting mild colitis. In the absence of oral contrast, the finding could be caused by artifact. Recommend clinical correlation. 3. Perirectal right lipomatosis. This finding could be associated ulcerative colitis. Recommend clinical correlation. 4. Cholelithiasis. No evidence for acute cholecystitis. 5. Sigmoid diverticulosis. No active diverticulitis. 6. Small pericardial effusion. No significant discrepancy with the shift supervisor film processing radiology preliminary report. Dictated by: Dorota Rangel M.D. on 11/13/2016 at 9:09 Transcribed by: PUNEET on 11/13/2016 at 9:19 Approved by: Dorota Rangel M.D. on 11/13/2016 at 10:48 Additional Diagnostics EGD performed in 2011 FINDINGS: 1. Mild gastritis. Biopsies obtained and submitted to pathology. 2. Small hiatal hernia. RECOMMENDATIONS: No obvious source of her left abdominal pain was identified. The patient will continue proton pump inhibitor therapy. I have encouraged her to lose weight. In regards to surveillance followup, the patient should not require followup upper GI endoscopy for two to three years unless she develops symptoms which warrant examination sooner. Pipe Valera MD Electronically Authenticated by: Pipe Valera MD 01/21/2012 14:56:05 [place] Assessment & Plan Leda Moore is a 71 year old female with a history of GI bleed, GERD, Coronary artery disease with stent placement, and Diabetes presents to [facility] emergency department via EMS after being found down. Hospital Day 3 1. Possible Upper GI bleeding. Present on admission, under evaluation - Patient reports Coffee ground emesis with some melena. Suspect probable gastritis based off of previous EGD in 2011 - Patient has stool positive for occult blood - Evidence of Hypovolemia at admission without any indications for blood transfusion at this time. Patient may be hemoconcentrated from dehydration - Patient had a significant drop in hemoglobin with 2 L bolus IV fluids, however hemoglobin remained stable for several hours while on a regular rate and 100 mL per hour - continue IV fluids - discontinue Protonix drip on 11/14 and start Protonix 40 mg twice a day - Continue trending H/H - Gastroenterology consulted with plan for EGD and colonoscopy on 11/16/2016 2. Acute blood loss anemia, not present on admission, stable - Patient reports both dark coffee ground hematemesis and hematochezia, which is consistent with 2 sources of bleeding - Patient appears hemoconcentrated at admission with significant dehydration and acute kidney disease secondary to prerenal azotemia - Patient had a significant drop in hemoglobin with 2 L bolus IV fluids, however hemoglobin remained stable for several hours while on a regular rate and 100 mL per hour - Anemia panel fails to show iron deficiency, GI blood loss likely not a significantly chronic problem - Continue to monitor hemoglobin levels - GI consult - initially held aspirin and clopidogrel for first 2 days, will restart enteric- coated baby aspirin with breakfast on 11/15 3. Acute Kidney Injury on chronic kidney disease. Present on admission, treated improving - Records obtained from primary care physician at [facility] in [place] show chronic kidney disease with recommendations for nephrology consultation - Suspect pre renal azotemia for acute kidney injury - Suspect combination of diabetic nephropathy versus hypertensive damage given type II diabetes and history of hypertension and coronary artery disease - avoid nephrotoxic insults - Urinalysis positive for blood and protein - Nephrology consulted for 11/15 - Restart outpatient tamsulosin and oxybutynin for possible urinary retention and overactive bladder - Holding outpatient lisinopril 4. Chronic diverticulosis, present on admission - CT abdomen and pelvis without contrast notes diverticulosis, consistent with CT performed in 2014 showing same - Patient has stool positive for occult blood, and reports recent bright red blood - GI consulted and will perform colonoscopy on November 16 5. Acute Leukocytosis. Present on admission, under evaluation - No evidence of any infectious process at this time - Patient reports diarrhea, possibly consistent with opiate withdrawal or CT abdomen shows thickening of the colon consistent with possible colitis, as well as lipomatosis and sigmoid diverticulosis - Stool biofire negative - Significant drop in white blood cell count from November 13 to November 14 and significant drop in Procalcitonin from November 14 to November 15 without antibiotic use - monitor closely 6 Diabetes mellitus type 2, present on admission, chronic - A1c 8.6 - Holding home med sitagliptin - Glucose is improved from admission of 277 to low to mid 100s - Continue home Lantus 16 units at bedtime consider increasing outpatient dose given elevated A1c - medium Lispro correction algorithm 7. Generalized weakness. Present on admission - Multifactorial. Possibly secondary to hyponatremia, No Urinary tract infection - interior surface insulation worker and Physical therapy assessment requested 8. Hyponatremia. Present on admission - Due to Hypovolemia and should response to Iv fluids. - continue fluids and recheck 9. History of coronary artery disease, present on admission, chronic - Patient with 4 stents placed total last in 2007 - Initially held baby aspirin and clopidogrel - We will restart baby aspirin 11/15 - Restart home statin medication 10. History of falls and Chronic pain, present on admission - Med rec shows oxycodone/acetaminophen - Osteopathic manipulative medicine performed on 11/14/2016 - Discontinue Oxycodone given poor mentation and history of falls 11. Hypothyroidism, present on admission, chronic - Restart outpatient levothyroxine 112 g daily 12. Hypertension, present on admission, chronic - Restart home clopidogrel 13. Elevated creatinine kinase, present on admission, resolved - Likely represent early mild Rhabdomyolysis from prolongs time on floor - continue IV fluids - Bowel regimen as needed - Antiemetic as needed Disposition: Patient will likely remain inpatient for the next 1-2 days while evaluating possible GI bleed. GI Prophylaxis: Proton Pump Inhibitor VTE Prophylaxis: Sub-Q Heparin (Unfractionated), SCDs VTE Mechanical Devices: Intermittant Pneumatic CD Resuscitation Status: CPR: Attempt Resuscitation Time spent 35 minutes Attending Statement The patient was seen and examined together with Dr. Sorto on 11/15/16 and I agree with the history, exam and plan as outlined in the note above. Germain Velasquez DO Nov 15, 2016 06:54 Alexia Hanson DO Nov 18, 2016 13:44
[2016-11-15] MEDS: Heparin 5,000 Unit/mL Inj SUBQ SCH (17:40)
--- NOTE | 2016-11-15 18:39 | NUR ---
Pain/Golytely Pt started Golytely at approximately 1730. Pt stated pain on wiping after bowel movement with streaks of camilla blood. Provided barrier wipes and cream to bottom. Notified MD to assess. MD ordered Preparation H for external hemorrhoid. Care continues.
[2016-11-15] MEDS ORDERED: Phenylephrine 0.25% Rectal Suppository RECTAL PRN (18:40)
[2016-11-15] MEDS: Insulin GLARgine 100 Unit/mL Syringe SUBQ SCH (21:24)
[2016-11-16] VITALS (13 sets, daily range): BP systolic 108–142; BP diastolic 55–72; PULSE 57–71; RESP 12–17; O2SAT 91–96
[2016-11-16] MEDS: Heparin 5,000 Unit/mL Inj SUBQ SCH ×3 (00:49→18:06)
[2016-11-16 03:06] LABS: Mean Corpuscular Hemoglobin 29.1 pg (27.0-35.0); Mean Corpuscular Volume 90.6 fL (81-100); Platelet Count 190 bil/L (150-400)
[2016-11-16 03:22] LABS: BASOPHILS % (AUTO) 1 % (0-3); EOSINOPHILS % (AUTO) 4 % (0-5); MONOCYTES % (AUTO) 10 % (4-12); NEUTROPHILS % (AUTO) 56 % (40-74)
--- NOTE | 2016-11-16 05:40 | NUR ---
Bowel Prep Patient completed first half of golytely by 1999. Continues having frequent liquid stools. PRN preparation H suppository given for rectal discomfort with partial improvement. Continue to monitor.
--- NOTE | 2016-11-16 09:05 | NUR ---
Non compliant NPO After repeated reminders, notes on board of NPO; pt ate jello and drank apple juice. Called Endo, passed onto Allie. Care continues.
[2016-11-16] MEDS: Isosorbide Mononitrate 30 mg ER24 Tablet PO SCH (09:25)
[2016-11-16] MEDS: Pantoprazole 40 mg ER24 Tablet PO SCH ×2 (09:25→18:06)
[2016-11-16] MEDS: Insulin LISPRO 300 Unit/3 mL Inj SUBQ SCH ×4 (10:55→22:00)
--- NOTE | 2016-11-16 11:44 | NUR ---
Mobility Pt remains in bed. RN Continuing to get pt up to BSC. Encouraged pt to get OOB to chair, bedside commode or bathroom. Care continues.
[2016-11-16] MEDS ORDERED: Propofol 10,000 mCg/mL 20 mL Inj ONE (13:48)
[2016-11-16] MEDS ORDERED: Ketamine 10 mg/mL 20 mL Inj ONE (13:48)
[2016-11-16] MEDS ORDERED: fentaNYL-PF 50 mCg/mL 2 mL Inj ONE (13:48)
--- NOTE | 2016-11-16 14:11 | NUR ---
Social Work: Readiness for Discharge Data/Assessment: Pt discussed in am rounds. pt is not medically stable for discharge at this time. Pt anticipated to discharge home tomorrow. Pt declined SNF however has been improving with ambulation distance and was able to ambulate 50 feet. Current PT recommendation is home with HH with life alert button. F2F completed. VASCULAR ULTRASOUND TECHNOLOGIST met with pt at bedside to confirm discharge plan and assess for unmet needs. Pt provided with Safety Line information. Pt states she will call to arrange this. She declined to have VASCULAR ULTRASOUND TECHNOLOGIST arrange for a bedside meeting prior to discharge. Pt confirms that her preference is [facility]. Pt states she has a PCP through [facility]. NIGHT SHIFT SUPERVISOR is calling to verify if pt is a current pt as she does not have a listed PCP. Pt is agreeable to a residency clinic appointment if she is not active with a PCP. Pt denies any further needs. Plan: Anticipate pt to discharge home with [facility] for RN, PT and ELEMENTARY ASSISTANT PRINCIPAL. VASCULAR ULTRASOUND TECHNOLOGIST to continue to follow and verify pt's PCP. STEPHEN Gray
--- NOTE | 2016-11-16 14:48 | PCM.PNMED ---
Subjective Date of Service Nov 16, 2016 Subjective overnight: No acute events overnight today: Leda states that she has continued to have loose bowel movements after drinking the GoLYTELY. She does not feel that she more distended today are more bloated passing more gas. She says she does have some abdominal discomfort on her left and right sides. The patient states that she has not had any trouble ambulating in the past besides when she became acutely ill prior to admission and was not able to get up for several days. She denies any previous issue with left right-sided weakness, facial drooping or difficulty with speech. The patient is ready for her EGD and colonoscopy later today. No questions at this time. Exam Vital Signs Vital Sign - Last Date Time Temp Pulse Resp B/P Pulse Ox O2 Delivery O2 Flow Rate FiO2 11/16/16 05:02 37.0 60 17 125/71 95 Nasal Cannula 1.00 Intake and Output 11/15/16 11/15/16 11/16/16 Cumulative From/Thru 15:00 23:00 07:00 11/13/16 01:01 - 11/16/16 06:27 Intake Total 860 ml 1220 ml 8117 ml Output Total 900 ml 4 ml 5054 ml Balance -40 ml 1216 ml 3063 ml Intake Oral 850 ml 1200 ml 3340 ml IV Total 10 ml 20 ml 4777 ml Output Urine Total 900 ml 5050 ml Urine/Stool Mix 4 ml 4 ml # Voids 4 # Bowel Movements 3 4 11 Exam General: Obese elderly female appearing older than stated age Alert, Oriented X3, Cooperative, No acute Distress Eyes: PERRLA, Scleral Anicteric, noninjected conjunctiva HENT: Normocephalic atraumatic, moist mucous membranes without central cyanosis , no cobblestoning mucosa noted, noted hirsutism around her chin Neck: Supple, no Thyromegaly, trachea central. Cardiovascular: Normal S1, Normal S2, No Murmurs/Rubs/Gallops, Regular Rate/ Rhythm, (No JVD, no peripheral edema) Lungs: Clear to auscultation & percussion, No adventitious breath sounds, no crackles, no wheeze Abdomen: Soft, Non-tender, Non-distended, Normoactive bowel tones, patient has a noted sagittally oriented ventral laparotomy scar with different consistencies above and below the umbilicus consistent secondary to separate surgeries Musculoskeletal: Unremarkable. Normal range of motion, no swollen or erythematous joints Extremities: Pulses intact at the radial and dorsalis pedis bilaterally, No edema, no cyanosis, no clubbing. Skin: No rashes. Warm and dry, no erythematous areas, tattoo noted on left forearm Neurological: Cranial nerves II through XII grossly intact, strength intact bilaterally at filament cutter, biceps, triceps, plantar, dorsiflexion, knee extension. No dysdiadochokinesia noted in upper or lower extremities, no pronator drift noted. Lymphatic: Lymph nodes Cervical and Axillary not palpable. : No randhawa in place Rectal: HERBER deferred given colonoscopy requirements with no colonoscopy in the last 10 years and bright red blood per rectum with a history of diverticulosis and colitis, notable nonthrombosed external hemorrhoid on the right side of the anus not acutely bleeding IVs and Medications Medications Reviewed: Medications were reviewed in detail Lab and Diagnostics Result Diagram: 11/16/16 [id number]/[id number]/[id number] Microbiology Stool biofire negative for pathology X-Rays, CTs and MRIs X-RAY CHEST ONE VIEW, PORTABLE 11/13 IMPRESSION: Small left basilar scarring with no significant change. No definite acute cardiopulmonary process. Dictated by: Fermin Rushing [facility] Interpreted: Dorota Rangel MD on 11/13/2016 at 8:38 Transcribed by: LINDA on 11/13/2016 at 8:54 Approved by: Dorota Rangel M.D. on 11/13/2016 at 11:10 CT ABDOMEN AND PELVIS WITHOUT CONTRAST 11/13 IMPRESSION: 1. There are postsurgical changes around the stomach. No definitive CT findings to explain upper GI bleed. 2. Probable mild colonic thickening in the distal transverse colon and proximal descending colon, suggesting mild colitis. In the absence of oral contrast, the finding could be caused by artifact. Recommend clinical correlation. 3. Perirectal right lipomatosis. This finding could be associated ulcerative colitis. Recommend clinical correlation. 4. Cholelithiasis. No evidence for acute cholecystitis. 5. Sigmoid diverticulosis. No active diverticulitis. 6. Small pericardial effusion. 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 Dictated by: Dorota Rangel M.D. on 11/13/2016 at 9:09 Transcribed by: PUNEET on 11/13/2016 at 9:19 Approved by: Dorota Rangel M.D. on 11/13/2016 at 10:48 Additional Diagnostics EGD performed in 2011 FINDINGS: 1. Mild gastritis. Biopsies obtained and submitted to pathology. 2. Small hiatal hernia. RECOMMENDATIONS: No obvious source of her left abdominal pain was identified. The patient will continue proton pump inhibitor therapy. I have encouraged her to lose weight. In regards to surveillance followup, the patient should not require followup upper GI endoscopy for two to three years unless she develops symptoms which warrant examination sooner. Pipe Valera MD Electronically Authenticated by: Pipe Valera MD 01/21/2012 14:56:05 [place] Assessment & Plan Leda Moore is a 71 year old female with a history of GI bleed, GERD, Coronary artery disease with stent placement, and Diabetes presents to [facility] emergency department via EMS after being found down. Hospital Day 4 1. Possible Upper GI bleeding. Present on admission, under evaluation - Patient reports Coffee ground emesis with some melena. Suspect probable gastritis based off of previous EGD in 2011 - Patient has stool positive for occult blood - Evidence of Hypovolemia at admission without any indications for blood transfusion at this time. Patient may be hemoconcentrated from dehydration - Patient had a significant drop in hemoglobin with 2 L bolus IV fluids, however hemoglobin remained stable for several hours while on a regular rate and 100 mL per hour - continue IV fluids - discontinue Protonix drip on 11/14 and start Protonix 40 mg twice a day - Continue trending H/H - Gastroenterology consulted with plan for EGD and colonoscopy on 11/16/2016 2. Acute blood loss anemia, not present on admission, stable - Patient reports both dark coffee ground hematemesis and hematochezia, which is consistent with 2 sources of bleeding - Patient appears hemoconcentrated at admission with significant dehydration and acute kidney disease secondary to prerenal azotemia - Patient had a significant drop in hemoglobin with 2 L bolus IV fluids, however hemoglobin remained stable for several hours while on a regular rate and 100 mL per hour - Anemia panel fails to show iron deficiency, GI blood loss likely not a significantly chronic problem - Continue to monitor hemoglobin levels - GI consult - initially held aspirin and clopidogrel for first 2 days, will restart enteric- coated baby aspirin with breakfast on 11/15 3. Acute Kidney Injury on chronic kidney disease. Present on admission, treated improving - Records obtained from primary care physician at [facility] in [place] show chronic kidney disease with recommendations for nephrology consultation - Suspect pre renal azotemia for acute kidney injury - Suspect combination of diabetic nephropathy versus hypertensive damage given type II diabetes and history of hypertension and coronary artery disease - avoid nephrotoxic insults - Urinalysis positive for blood and protein - Nephrology consulted for 11/15 - Restart outpatient tamsulosin and oxybutynin for possible urinary retention and overactive bladder - Holding outpatient lisinopril 4. Chronic diverticulosis, present on admission - CT abdomen and pelvis without contrast notes diverticulosis, consistent with CT performed in 2014 showing same - Patient has stool positive for occult blood, and reports recent bright red blood - GI consulted and will perform colonoscopy on November 16 5. Acute Leukocytosis. Present on admission, under evaluation - No evidence of any infectious process at this time - Patient reports diarrhea, possibly consistent with opiate withdrawal or CT abdomen shows thickening of the colon consistent with possible colitis, as well as lipomatosis and sigmoid diverticulosis - Stool biofire negative - Significant drop in white blood cell count from November 13 to November 14 and significant drop in Procalcitonin from November 14 to November 15 without antibiotic use - monitor closely 6 Diabetes mellitus type 2, present on admission, chronic - A1c 8.6 - Holding home med sitagliptin - Glucose is improved from admission of 277 to low to mid 100s - Continue home Lantus 16 units at bedtime consider increasing outpatient dose given elevated A1c - medium Lispro correction algorithm 7. Generalized weakness. Present on admission - Multifactorial. 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 Hyponatremia. Present on admission - Due to Hypovolemia and should response to Iv fluids. - continue fluids and recheck 9. History of coronary artery disease, present on admission, chronic - Patient with 4 stents placed total last in 2007 - Initially held baby aspirin and clopidogrel - We will restart baby aspirin 3/30 - Restart home statin medication 10. History of falls and Chronic pain, present on admission - Med rec shows oxycodone/acetaminophen - Osteopathic manipulative medicine performed on 11/14/2016 - Discontinue Oxycodone given poor mentation and history of falls 11. Hypothyroidism, present on admission, chronic - continue outpatient levothyroxine 112 g daily 12. Hypertension, present on admission, chronic - continue home clopidogrel 13. Elevated creatinine kinase, present on admission, resolved - Likely represent early mild Rhabdomyolysis from prolongs time on floor - continue IV fluids - Bowel regimen as needed - Antiemetic as needed Disposition: Patient will likely remain inpatient for the next 1-2 days while evaluating possible GI bleed. GI Prophylaxis: Proton Pump Inhibitor VTE Prophylaxis: Sub-Q Heparin (Unfractionated), SCDs VTE Mechanical Devices: Intermittant Pneumatic CD Resuscitation Status: CPR: Attempt Resuscitation Time spent 35 minutes Attending Statement The patient was seen and examined together with Dr. Sorto on 11/16/16 and I have added additional information to the note above. Germain Velasquez DO Nov 16, 2016 07:54 Alexia Hanson DO Nov 18, 2016 13:48
[2016-11-16] MEDS ORDERED: Lactated Ringer's 1,000 ML IV ONE ×2 (14:51→15:12)
[2016-11-16] MEDS ORDERED: Lactated Ringer's 1,000 ML IV SCH (14:51)
--- NOTE | 2016-11-16 14:51 | PCM.HPANE ---
Patient Data Surgeon Admitting Provider:Neal Norris MD Attending Provider:Neal Norris MD Primary Care Physician:Bailey Other Provider: Reason for Visit Upper Gi Bleed Dehydration Weakness Ht/WT & BMI Height (Feet): 5 Height (Inches): 4.00 Weight (Kilograms): 96.100 Body Mass Index 34.78 Allergies Coded Allergies: Penicillins (Verified Allergy, Unknown, UNKNOWN (HAS TAKEN CEPHALOSPORINS W/O PROBLEMS), 11/13/16) Sulfa (Sulfonamide Antibiotics) (Unverified Allergy, Unknown, UNKNOWN, ) acetaminophen (Unverified Allergy, Unknown, UNKNOWN (FROM HYDROCODONE), 11/13/16) hydrocodone (Unverified Allergy, Unknown, UNKNOWN, 11/13/16) Past Anesthesia History Anesthesia History: Denies:: Abnormal Airway, Anesthesia Reactions, Difficult Intubation, Fam Anesthesia Reaction, Fam Malignant Hypertherm, Malignant Hyperthermia Diabetes History Hx Diabetes?: Yes Type of Diabetes: Type II Glycemic Control: Oral Medication Current Bedside Blood Glucose: 160 MRSA MRSA: No Medications Blood Thinner: Aspirin Hypertension Medication: Yes Home Meds Incl Beta Filiberto: Yes Date Beta Filiberto Taken: Nov 16, 2016 Time Beta Filiberto Taken: 09:26 Reported Medications Polyethylene Glycol 3350 17 Gm Powd.pack17 Gm PO DAILY PRN For Constipation 11/13/16 Sennosides (Senna)8.6 Mg Tablet8.6 Mg PO BID PRN For Constipation 11/13/16 Docusate Sodium 250 Mg Rlfklxu667 Mg PO DAILY Ref 0 11/13/16 Nitroglycerin SL 0.4 Mg Tab.subl0.4 Mg SL Q5MIN PRN For Chest Pain 11/13/16 Hydrocodone-Acetaminophen 5-325 mg 1 Each Tablet1-2 Tablet PO Q6H PRN For Pain Ref 0 11/13/16 Aspirin 81 Mg Cpbdbi45 Mg PO DAILY Ref 0 11/13/16 Amlodipine 10 Mg Zmisik82 Mg PO DAILY Ref 0 11/13/16 Lisinopril 10 Mg Qzsrvy26 Mg PO DAILY #90 11/13/16 Levothyroxine 112 Mcg Yruobo158 Mcg PO QAM For Thyroid Replacement Ref 0 11/13/16 Tramadol 50 Mg Axhsae00 Mg PO q8 PRN For Pain Ref 0 11/13/16 Tamsulosin (Flomax)0.4 Mg Capsule0.4 Mg PO HS Ref 0 11/13/16 Sodium Bicarbonate 650 Mg Iyiptd548 Mg PO TID 11/13/16 Sitagliptin Phos (Januvia)50 Mg Iohcoz00 Mg PO DAILY Ref 0 11/13/16 Oxybutynin Chloride ER (Ditropan XL)5 Mg Tab.er.245 Mg PO DAILY Ref 0 11/13/16 Omeprazole 20 Mg Capsule.dr20 Mg PO QAM Ref 0 11/13/16 Metoclopramide 5 Mg Tablet5 Mg PO ACHS Ref 0 11/13/16 Insulin Glargine (Lantus U100 Solostar Insulin Pen)100 Unit/1 Ml Insuln.pen16 Unit SUBQ DAILY #1 PENINJ Ref 0 11/13/16 Isosorbide MN ER 30 Mg Tab.er.24h30 Mg PO DAILY 11/13/16 Clopidogrel 75 Mg Xsyztk37 Mg PO DAILY Ref 0 11/13/16 Cholecalciferol (Vitamin D3) (Vitamin D3)1,000 Unit Tab.chew1,000 Unit PO DAILY 11/13/16 Carvedilol 6.25 Mg Tablet6.25 Mg PO BID Ref 0 11/13/16 Atorvastatin (Lipitor)40 Mg Gfzqmu41 Mg PO HS Ref 0 11/13/16 Albuterol HFA (Proair HFA)8.5 Gm Hfa.aer.ad2 Puffs INHALATION Q4H PRN For Wheezing #1 INHALER 11/13/16 Discontinued Reported Medications Docusate Sodium 250 Mg Prnnifu602 Mg PO DAILY Ref 0 11/13/16 Oxybutynin Chloride ER 5 Mg Tab.er.245 Mg PO DAILY Ref 0 11/13/16 Oxybutynin Chloride 5 Mg Tablet5 Mg PO TID Ref 0 11/13/16 Nitroglycerin 0.3 Mg Tab.subl0.3 Mg SL 11/13/16 Metoclopramide HCl (Metoclopramide HCl Odt)10 Mg Tab. Mg PO 11/13/16 Diclofenac ER 75 Mg Tablet.dr75 Mg PO d 11/23/13 Metformin 1,000 Mg Tablet1,000 Mg PO BID PRN bid 30 Days Ref 0 11/23/13 Omeprazole (Prilosec)40 Mg Capsule.dr40 Mg PO BID 30 Days Ref 0 11/20/13 Sennosides (Senexon)8.8 Mg/5 Ml Syrup8.8 Mg PO BID PRN 11/20/13 oxyCODONE-Acetaminophen 5-325 mg 1 Each Tablet1-2 Each PO Q 4-6HRS PRN PRN For Pain Ref 0 11/20/13 Hydrocodone/Acetaminophen (Baker 5-325 Tablet)1 Each Tablet1-2 Each PO Q 4-6HRS PRN 11/20/13 Metoprolol Succinate ER 25 Mg Tab.er.24h12.5 Mg PO BID 30 Days Ref 0 11/20/13 Sitagliptin Phosphate (Januvia)100 Mg Zqhewr024 Mg PO DAILY #30 TAB 06/14/13 Levothyroxine-Expunged Drug, Do Not Renew! (Levoxyl-Expunged Drug, Do Not Renew! )125 Mcg Kryiwh703 Mcg PO DAILY 06/14/13 Discontinued Scripts Aspirin-Expunged Drug, Do Not Renew! 81 Mg Xpbkor56 Mg PO DAILY 30 Days Prov:Heaven Haro MD 06/20/13 Lisinopril-Expunged Drug, Do Not Renew! 10 Mg Sopzug68 Mg PO DAILY 30 Days Prov:Heaven Haro MD 06/20/13 AmLODIPine-Expunged Drug, Do Not Renew! 5 Mg Itgptb80 Mg PO DAILY 30 Days Prov:Heaven Haro MD 06/20/13 History History of ENT Problems?: No HEENT History: Positive for:: Dysphagia Denies:: Abnormal Airway Cataracts Difficult Intubation Hearing Problem Sinus Problem Denture Type: Full- Upper Full- Lower Hx of Heart Problems?: Yes Cardiovascular History: Positive for:: Cardiac Surgery (stents) Chest Pain (2007) Hypertension Denies:: Atrial Fibrillation Congestive Heart Failure Edema Heart Murmur Irregular Heartbeat Pacemaker Thrombophlebitis Valvular Heart Disease Hx of Respiratory Problem?: Yes Respiratory History: Positive for:: Asthma Dyspnea Denies:: COPD Chest Surgery Emphysema Hemoptysis Pneumonia Tuberculosis Use of C-PAP Machine Hx Neurologic Problems?: Yes Neurological History: Positive for:: Headaches Denies:: Alzheimer's Disease CVA Dementia Dizziness Parkinson's Disease Seizures Hx of GI Problems?: Yes Gastrointestinal History: Positive for:: Gastroesphageal Reflux Gastrointestinal Bleeding (vomiting blood this admit) Hiatal Hernia (" i have two hernias in my stomach") Rectal Bleeding (stooling blood this admit) Denies:: Cirrhosis Diverticulitis Heartburn Hepatitis Hx of Problems?: Yes Genitourinary History: Positive for:: Urinary Tract Infection (multi) Denies:: Kidney Stones Female Hx: Denies:: Currently Endometriosis Pelvic Inflammatory Skin History: Denies:: History Skin Disorders? Pressure Ulcers Hx Musculoskeletal Problems?: Yes Musculoskeletal History: Positive for:: Joint Replacement (left knee left ankle) Musculoskeletal Trauma Denies:: Back Injury Hx of Psycho/Social Problems?: Yes Psycho Social History: Positive for:: Hx Depression Denies:: Anxiety Bipolar Disorder Suicide Attempt Hx Surgeries?: Yes (VENTRAL HERNIA RPR,GASTRIC SURGERY,ORIF BILAT ANKLES,RPR BILAT KNEES,APPY,H) Hx Any Other Health Problems?: Yes Other History: Positive for:: Hospitalization Thyroid Disease Denies:: Cancer Endocrine Disease History Blood Transfusions: Positive for:: Accept Blood Products? Denies:: Blood Transfuse Reaction Blood Transfusions Hx Diabetes: YesBedside Blood Glucose: 160 Hx Alcohol Use: NoHx Substance Use: Yes (Marijuana) Smoking Status: Former Smoker Have You Smoked inLast 12 mo: Yes (marijuana)Approx How Many Cigarettes/day: quit 15years ago Stop/Bang Treated for Sleep Apnea?: No Do You Have a CPAP Machine?: Yes S-Snoring: Do You Snore Loudly: Yes T-Tired: feel tired, fatigued: Yes O-Obsered: Observed not breath: No P-Blood Pressure: treated: Yes B- Body Mass Index > 35 kg/m2: Yes A- Age over 50: Yes N- Neck Large Circumference: Yes G- Gender Male: No JAYESH Total Score: 6 JAYESH Risk Assessment: High Risk, =/>3 Yes JAYESH Category 4 OutPt Procedure: Yes Risk Assessment Category Category 1A: Patient has history of documented sleep apnea, and HAS NOT received any narcotic, sedative or anesthesia administration during this stay. Category 1B: Patient has history of documented sleep apnea, and HAS received any narcotic , sedative or anesthesia administration during this stay Category 2: Patient has SUSPECTED Obstructive Sleep Apnea, and HAS received any narcotic , sedative or anesthesia administration during this stay. Category 3: Patient has SUSPECTED Obstructive Sleep Apnea and HAS NOT received narcotic, sedative or anesthesia administration during this stay. Category 4: Outpatient in Procedural Areas with known sleep apnea or who screen positive for High Risk via the STOP/BANG questionnaire. Exam Exam Vital Signs Vital Signs Date Time Temp Pulse Resp B/P Pulse Ox O2 Delivery O2 Flow Rate FiO2 11/16/16 11:45 Room Air 11/16/16 09:15 36.6 71 16 120/61 96 Room Air 11/16/16 08:00 64 General Appearance: Alert, Oriented X3, Cooperative, No Acute Distress HEENT/AIRWAY: MP 2 Lungs: Clear to Auscultation, Normal Air Movement Heart: Exam Unremarkable, Regular Rate/Rhythm, No Murmurs/Rubs/Gallops Meds/Labs/Diagnostics Admission Meds Current Medications Polyethylene Glycol/ Electrolytes (Colyte) 4,000 ml ONCE ONCE PO Last administered on 11/15/16 17:40; Start 11/15/16 at 15:30; Stop 11/15/16 at 15:34 ; Status DC Heparin Sodium (Porcine) (Heparin Inj) 5,000 unit Q8 SUBQ Last administered on 11/16/16 00:49; Start 11/15/16 at 16:30 Bedside Blood Glucose: 160 Labs Test 11/13/16 01:16 11/13/16 04:55 11/13/16 13:53 11/14/16 02:56 Hematology Comments Rbc Prothrombin Time 9.4sec (8.1-12.5) Prothromb Time International Ratio 0.88ratio Hemoglobin A1c 8.6% (4.8-5.6) Magnesium Level 3.3mg/dL (1.6-2.6) Troponin T 0.010ug/L (0.0-0.011) Urine Color Dark yellow (YELLOW) Urine Appearance Slightly cloudy Urine pH 5.5 (5.0-8.0) Urine Specific [place] 1.025 (1.003-1.035) Urine Protein 30mg/dL (NEG,TRACE) Urine Glucose (UA) Negativemg/dL (NEGATIVE) Urine Ketones Negativemg/dL (NEGATIVE) Urine Occult Blood Negative (NEGATIVE) Urine Nitrite Negative (NEGATIVE) Urine Bilirubin Negative (NEGATIVE) Urine Urobilinogen Normalmg/dL (NORMAL) Urine Leukocyte Esterase Negative (NEGATIVE) Urine RBC 3-10/hpf (0-2) Urine WBC 0-5/hpf (0-5) Urine Epithelial Cells Few/hpf (NONE-MOD) Urine Crystals Amorphous urates (NONE Urine Bacteria None/hpf (NONE-FEW) Urine Hyaline Casts Occasional/lpf (NONE) Urine Granular Casts None seen (NONE SEEN) Urine Waxy Casts None seen (NONE SEEN) Urine Red Blood Cell Casts None seen (NONE SEEN) Urine White Blood Cell Casts None seen (NONE SEEN) Urine Mucus Present (None Seen) Urine Trichomonas None seen (NONE SEEN) Urine Yeast None (NONE SEEN) Urine Culture Reflexed Not indicated Reticulocyte Count,Calculated 2.8% (0.6-2.6) Iron Level 62ug/dL (35-150) Total Iron Binding Capacity 254ug/dL (250-450) Percent Iron Saturation 24%sat (15-50) Unsaturated Iron Binding 191.8ug/dL Ferritin 102ng/mL (13-150) Vitamin B12 Level >1999pg/mL (211-946) Folate > 19.9ng/mL (>3.0) Thyroid Stimulating Hormone (TSH) 2.680uIU/mL (0.450-4.500) Test 11/15/16 07:30 11/16/16 02:30 Myelocytes % 1% (0-0) White Blood Count 8.3th/mm3 (3.8-10.1) Red Blood Count 3.30mil/mm3 (3.90-5.20) Hemoglobin 9.6g/dL (12.0-15.6) Hematocrit 29.9% (35.0-46.0) Mean Corpuscular Volume 90.6fL (81-100) Mean Corpuscular Hemoglobin 29.1pg (27.0-35.0) Mean Corpuscular Hemoglobin Concent 32.1% (32.0-37.0) Red Cell Distribution Width 13.0% (12.3-15.4) Platelet Count 190bil/L (150-400) Neutrophils (%) (Auto) 56% (40-74) Lymphocytes (%) (Auto) 28% (14-46) Monocytes (%) (Auto) 10% (4-12) Eosinophils (%) (Auto) 4% (0-5) Basophils (%) (Auto) 1% (0-3) Band Neutrophils % 1% (1-5) Sodium Level 138mEq/L (134-144) Potassium Level 3.5mEq/L (3.5-5.2) Chloride Level 103mEq/L (97-108) Carbon Dioxide Level 21mmol/L (18-29) Blood Urea Nitrogen 28mg/dL (8-27) Creatinine 1.29mg/dL (0.57-1.00) Estimat Glomerular Filtration Rate 59mL/min (>59) Glucose Level 105mg/dL (60-99) Calcium Level 8.0mg/dL (8.5-10.1) Total Bilirubin 0.3mg/dL (0.0-1.2) Aspartate Amino Transf (AST/SGOT) 31U/L (0-50) Alanine Aminotransferase (ALT/SGPT) 15U/L (0-32) Alkaline Phosphatase 68U/L (25-165) Total Creatine Kinase 70U/L (21-215) Total Protein 5.8g/dL (6.4-8.4) Albumin 2.7g/dL (3.4-5.0) Procalcitonin 0.54ng/mL (0.00-0.08) Plan Impression Patient chart reviewed, patient interviewed and anesthestic plan with risks, benefits, and alternatives discussed, and informed consent obtained. NPO Status: > 8 hrs ASA Physical Status: ASA3 Severe Disease (DM, Upper GI b) Anesthetic Plan: MAC Bene/Risks/Altern/Consents: Yes HP Complete Prior to Induction: Yes Omar Cueto MD Nov 16, 2016 14:51
[2016-11-16] MEDS ORDERED: MetoCLOpramide 5 mg/mL 2 mL Inj IVPUSH PRN (14:55)
--- NOTE | 2016-11-16 15:10 | NUR ---
Scheduled follow up appointment with patient's PCP [phone], November check in at 115PM for 130PM appointment. Updated [employer]
--- NOTE | 2016-11-16 18:22 | ENDO ---
[address] [address] ENDOSCOPY PROCEDURE PATIENT: AUDREY BARBA : 1945 MR#: [id number] ADMIT: 11/13/2016 JOB ID: [id number] PROCEDURE: Esophagogastroduodenoscopy with biopsy and a colonoscopy with biopsies and cold forceps polypectomy. INDICATIONS: A 71-year-old female, who presented on November 13 after being down for two days at home. She apparently had been vomiting coffee-ground emesis and there was a report of additional appearance of red blood per rectum. CAT scan imaging revealed the presence of some thickening in the realm of the distal transverse and proximal descending. The patient has not had any further bleeding here in the hospital. She tolerated bowel prep. Both EGD and colonoscopy are pursued. It is additionally interesting to note the description of the perirectal lipomatosis seen on CT. EQUIPMENT: GIF-H180 and a PCF-H180AL. SEDATION: Monitored anesthesia as provided by Dr. Omar Cueto. COMPLICATIONS: None identified. BOWEL PREPARATION: Fair. PROCEDURE COMPLICATIONS: None identified. PROCEDURE INFORMATION: After the risks and benefits were explained, written and verbal informed consent was obtained, the patient was brought into the endoscopy suite and placed into the left lateral decubitus position. Sedation was achieved as above. The scope was introduced into the mouth through the bite block, and advanced under direct visualization to the second portion of the duodenum. The scope was slowly withdrawn to carefully examine the mucosa for any defects or lesions. Retroflexed views were accomplished in the stomach. The stomach was decompressed. The scope removed from the patient, who tolerated the procedure well. The patient was then turned around. A digital rectal examination was accomplished. No mass lesions could be detected. Moderate internal hemorrhoids were palpated. The scope was then introduced into the rectum and ultimately advanced to the cecum as identified by the appendiceal orifice and ileocecal valve. The terminal ileum was interrogated, the scope then slowly withdrawn to carefully examine the mucosa for any defects or lesions. The colon was decompressed, and the scope removed from the patient, who tolerated the procedure well. FINDINGS: 1. Duodenum: No pathology identified from the bulb through to the second portion. 2. Stomach: No outlet obstruction. No ulcers. No mass lesions. The patient had a mild diffuse gastropathy with some scattered superficial linear erosive features in the mid body. One of these areas was targeted for biopsy for exclusion of H. pylori or any other underlying histopathology. Retroflexed views of the LES disclosed a very small sliding hiatal hernia. 3. Esophagus: The squamocolumnar junction correlated with the top of the gastric folds. GE junction was at 39 cm from the incisors. No acute erosive changes. No strictures. No mass lesions. No significant pathology appreciated. 4. Colon: The patient had obvious severe mucosal injury from the dentate line almost circumferentially to about 13 cm from the anal verge. This was characterized by profoundly edematous underlying mucosa, patchy exudate, erythema, and complete loss of the typical vascular pattern seen in the rectum. Biopsy was ultimately taken at the completion of our procedure from the rectal mucosa for histopathologic analysis. There was no significant bleeding noted from the biopsy site. There was then some fairly normal intervening mucosa from about 13 cm up to somewhere around 30 cm in the sigmoid colon. At that point we started to see patchy areas of inflammation. This became much more confluent through the descending and around the splenic flexure region with large, patchy, linear areas of mucosal breakdown and repair (exudate). Biopsies were taken from this segment labeled splenic flexure and again there was hardly any significant hemorrhage from the biopsy site. In the transverse colon, there was a diminutive polyp removed with cold forceps. There were some patchy areas of mucosal irregularity and inflammation/injury. One of these was targeted for biopsy. The mucosa was largely normal in the ascending colon, and a biopsy was taken for histologic contrast. The terminal ileum appeared visually normal. Multiple photographs were taken throughout the case. ENDOSCOPIC DIAGNOSES: 1. Erosive gastropathy. 2. Small sliding hiatal hernia. 3. Noncontiguous patchy proctocolitis.--Injury suggests possible ischemic etiology. 4. Scattered diverticulosis (not mentioned above). 5. Mild hemorrhoids. 6. Colon polyp. RECOMMENDATIONS: 1. Await histopathology. 2. Continue supportive care, ensuring adequate excellent overall hydration. Continue to closely monitor blood pressure and attempt to maintain patient in an acceptably normotensive range. 3. Long-term, the patient should be encouraged to maintain a bowel regimen to keep stool soft and regular. Two tablespoons of ground flaxseed fiber mixed with 8 ounces of water or juice once or twice daily may help on that score. 4. For now, I think it would be reasonable to see how the patient does with a full liquid diet, advancing as tolerated. 5. It is difficult to determine what the primary issue was in this patient. She certainly could have developed severe obstipation with rectal ischemia resulting in nausea, vomiting, and further colonic ischemia. Alternatively, other cause for her dehydration, nausea, vomiting still needs to be considered and could conceivably manifest as diet is advanced. If she has recurrent symptoms, then perhaps further attention to gallbladder function/pathology would be appropriate.
--- NOTE | 2016-11-16 19:22 | NUR ---
Endo to [facility] Pt arrived back to [facility] at approximately 1630. Pt resting. Care continues.
[2016-11-16] MEDS: Insulin GLARgine 100 Unit/mL Syringe SUBQ SCH (22:07)
[2016-11-17] MEDS: Heparin 5,000 Unit/mL Inj SUBQ SCH ×3 (01:10→16:35)
[2016-11-17 02:55] LABS: BASOPHILS % (AUTO) 0.3 % (0-3); EOSINOPHILS % (AUTO) 2.3 % (0-5); MONOCYTES % (AUTO) 9.1 % (4-12); Mean Corpuscular Hemoglobin 29.1 pg (27.0-35.0); Mean Corpuscular Volume 89.9 fL (81-100); NEUTROPHILS % (AUTO) 65.4 % (40-74); Platelet Count 194 bil/L (150-400)
[2016-11-17 03:29] VITALS: BP 129/56; PULSE 70; RESP 20; O2SAT 93
--- NOTE | 2016-11-17 05:52 | NUR ---
Rest/Blood Patient resting in bed overnight. No complaints of pain. Small amount of blood noted in the back of the commode after patient up to void. No stools. Continue to monitor.
[2016-11-17] MEDS: Insulin LISPRO 300 Unit/3 mL Inj SUBQ SCH ×4 (08:00→22:00)
[2016-11-17 08:50] VITALS: BP 135/68; PULSE 65; RESP 16; O2SAT 94
[2016-11-17] MEDS: Isosorbide Mononitrate 30 mg ER24 Tablet PO SCH (08:56)
[2016-11-17] MEDS: Pantoprazole 40 mg ER24 Tablet PO SCH ×2 (08:57→16:36)
[2016-11-17 12:16] VITALS: BP 122/60; PULSE 62; RESP 20; O2SAT 94
--- NOTE | 2016-11-17 13:38 | PROG NOTE ---
[address] [address] PROGRESS NOTE PATIENT: AUDREY BARBA : 1945 MR#: [id number] ADMIT: 11/13/2016 JOB ID: [id number] DATE: 11/17/2016 SUBJECTIVE: The patient has tolerated the procedures yesterday quite well. She has had a little bit of rectal bleeding today. She continues to have a little bit of rectal discomfort as before. Mild left-sided abdominal discomfort. It sounds like the patient was definitely having problems with constipation, opiate induced. She was frequently requiring rectal manipulation through the vagina to facilitate bowel movements. OBJECTIVE: Vital signs are stable this morning. The patient is conversational, in no distress. Abdomen is soft. I did not appreciate any guarding or significant tenderness. LABORATORIES: White count is 9.0, hemoglobin 9.8, platelets 194 and basic metabolic panel is stable. ASSESSMENT AND RECOMMENDATION: A 71-year-old female with what appears to be an acute ischemic colitis. Based on the endoscopic appearance, this was highly suggestive of a fecal impaction and severe obstipation. As an outpatient, the patient would likely benefit from tapering down and off of all opiate medication. She will need a regular fiber regimen with the likes of 2 tablespoons of ground flaxseed fiber mixed with 8 ounces of water or juice once or twice a day. She additionally may require MiraLAX. Whatever the regimen, she needs to have a soft regular daily bowel movement. She also needs to maintain excellent hydration and keep blood pressure within normal limits. I think the bleeding she has noted per rectum will spontaneously stop. I think it would be prudent to attempt advancement of her diet to a soft diet today. If she remains clinically stable, doing well by tomorrow, she may be eligible for discharge home. It would then ultimately be appropriate to consider a flexible sigmoidoscopy in the next six weeks or so to ensure complete mucosal healing. Note: This is a no charge physician visit for today. Please do not submit charges for this particular note.
--- NOTE | 2016-11-17 15:01 | PCM.PNMED ---
Subjective Date of Service Nov 17, 2016 Subjective overnight: No acute events overnight Today: Patient states she has continued to notice blood in her stool since her colonoscopy. She denies any worsening abdominal complaints. The patient states that she has a good constitution for pain and will not require narcotics in the future. She understands that GI recommendations include a high fiber diet. She would like to go home today if at all possible but she understands that GI would like to monitor her for 1 more day. Exam Vital Signs Vital Sign - Last Date Time Temp Pulse Resp B/P Pulse Ox O2 Delivery O2 Flow Rate FiO2 11/17/16 03:29 37.2 70 20 129/56 93 Room Air 11/16/16 16:54 2 Intake and Output 11/16/16 11/16/16 11/17/16 Cumulative From/Thru 15:00 23:00 07:00 11/13/16 01:01 - 11/17/16 06:13 Intake Total 1620 ml 320 ml 85975 ml Output Total 2700 ml 700 ml 8454 ml Balance -1080 ml -380 ml 1603 ml Intake Oral 1210 ml 300 ml 4850 ml IV Total 410 ml 20 ml 5207 ml Output Urine Total 600 ml 700 ml 6350 ml Urine/Stool Mix 2100 ml 2104 ml # Voids 2 6 # Bowel Movements 11 Exam General: Obese elderly female appearing older than stated age Alert, Oriented X3, Cooperative, No acute Distress Eyes: PERRLA, Scleral Anicteric, noninjected conjunctiva HENT: Normocephalic atraumatic, moist mucous membranes without central cyanosis , no cobblestoning mucosa noted, noted hirsutism around her chin Neck: Supple, no Thyromegaly, trachea central. Cardiovascular: Normal S1, Normal S2, No Murmurs/Rubs/Gallops, Regular Rate/ Rhythm, (No JVD, no peripheral edema) Lungs: Clear to auscultation & percussion, No adventitious breath sounds, no crackles, no wheeze Abdomen: Soft, Non-tender, Non-distended, Normoactive bowel tones, patient has a noted sagittally oriented ventral laparotomy scar with different consistencies above and below the umbilicus consistent secondary to separate surgeries Musculoskeletal: Unremarkable. Normal range of motion, no swollen or erythematous joints Extremities: Pulses intact at the radial and dorsalis pedis bilaterally, No edema, no cyanosis, no clubbing. Skin: No rashes. Warm and dry, no erythematous areas, tattoo noted on left forearm Neurological: No focal neurologic deficits compared to prior exam, able to move all extremities : No randhawa in place IVs and Medications Medications Reviewed: Medications were reviewed in detail Lab and Diagnostics Result Diagram: 11/17/1622411/17/16224 Microbiology Stool biofire negative for pathology X-Rays, CTs and MRIs X-RAY CHEST ONE VIEW, PORTABLE 11/13 IMPRESSION: Small left basilar scarring with no significant change. No definite acute cardiopulmonary process. Dictated by: Fermin Rushing RRA Interpreted: Dorota Rangel MD on 11/13/2016 at 8:38 Transcribed by: LINDA on 11/13/2016 at 8:54 Approved by: Dorota Rangel M.D. on 11/13/2016 at 11:10 CT ABDOMEN AND PELVIS WITHOUT CONTRAST 11/13 IMPRESSION: 1. There are postsurgical changes around the stomach. No definitive CT findings to explain upper GI bleed. 2. Probable mild colonic thickening in the distal transverse colon and proximal descending colon, suggesting mild colitis. In the absence of oral contrast, the finding could be caused by artifact. Recommend clinical correlation. 3. Perirectal right lipomatosis. This finding could be associated ulcerative colitis. Recommend clinical correlation. 4. Cholelithiasis. No evidence for acute cholecystitis. 5. Sigmoid diverticulosis. No active diverticulitis. 6. Small pericardial effusion. No significant discrepancy with the shift manager radiology preliminary report. Dictated by: Dorota Rangel M.D. on 11/13/2016 at 9:09 Transcribed by: PUNEET on 11/13/2016 at 9:19 Approved by: Dorota Rangel M.D. on 11/13/2016 at 10:48 Additional Diagnostics EGD and Colonoscopy ENDOSCOPIC PROCEDURES ENDOSCOPIC DIAGNOSES: 1. Erosive gastropathy. 2. Small sliding hiatal hernia. 3. Noncontiguous patchy proctocolitis.--Injury suggests possible ischemic etiology. 4. Scattered diverticulosis . 5. Mild hemorrhoids. 6. Colon polyp. David Gaston MD 11/16/16 1621 Assessment & Plan Lead Moore is a 71 year old female with a history of GI bleed, GERD, Coronary artery disease with stent placement, and Diabetes presents to [facility] emergency department via EMS after being found down. Hospital Day 5 1. Upper and lower GI bleeding. Present on admission, stable - Patient reports Coffee ground emesis with some melena. Suspect probable gastritis based off of previous EGD in 2011 - Patient has stool positive for occult blood - Evidence of Hypovolemia at admission without any indications for blood transfusion at this time. Patient may be hemoconcentrated from dehydration - Patient had a significant drop in hemoglobin near admission, however hemoglobin remained stable since - discontinue Protonix drip on 11/14 and start Protonix 40 mg twice a day - EGD and colonoscopy performed on November 16 results showed mild hemorrhoids, diverticulosis, erosive gastropathy, ischemic colitis all possibly contributing to GI bleed - GI evaluation consistent with severe obstipation resulting in ischemic colitis - GI recommendations include daily fiber supplementation to achieve daily smooth soft stools and repeat sigmoidoscopy in 6 weeks to ensure proper healing of ischemic colitis - Patient has scheduled psyllium daily as well as scheduled MiraLAX daily - Avoid narcotics given constipating risk, the patient has Tylenol available for pain 2. Acute blood loss anemia, not present on admission, stable - Patient reports both dark coffee ground hematemesis and hematochezia, which is consistent with 2 sources of bleeding - Patient appears hemoconcentrated at admission with significant dehydration and acute kidney disease secondary to prerenal azotemia - Patient had a significant drop in hemoglobin near admission, however hemoglobin remained stable since - Anemia panel fails to show iron deficiency, GI blood loss likely not a significantly chronic problem - initially held aspirin and clopidogrel for first 2 days, will restart enteric- coated baby aspirin with breakfast on 11/15 - EGD and colonoscopy results showed mild hemorrhoids, diverticulosis, erosive gastropathy, ischemic colitis all possibly contributing to GI bleed 3. Acute Kidney Injury on chronic kidney disease. Present on admission, treated improving - Records obtained from primary care physician at [facility] in [place] show chronic kidney disease with recommendations for nephrology consultation - Suspect pre renal azotemia for acute kidney injury - Suspect combination of diabetic nephropathy versus hypertensive damage given type II diabetes and history of hypertension and coronary artery disease - Urinalysis positive for blood and protein - Restart outpatient oxybutynin for possible overactive bladder - avoid nephrotoxic insults Holding outpatient lisinopril - Recommend nephrology follow-up as an outpatient given chronic kidney disease borderline stage III 4. Chronic diverticulosis, present on admission - CT abdomen and pelvis without contrast notes diverticulosis, consistent with CT performed in 2014 showing same - Patient has stool positive for occult blood, and reports recent bright red blood - GI consulted and with recommendations discussed above 5. Acute Leukocytosis. Present on admission, under evaluation - No evidence of any infectious process at this time - Patient reports diarrhea, possibly consistent with opiate withdrawal or CT abdomen shows thickening of the colon consistent with possible colitis, as well as lipomatosis and sigmoid diverticulosis - Stool biofire negative - Significant drop in white blood cell count from November 13 to November 14 and significant drop in Procalcitonin from November 14 to November 15 without antibiotic use - monitor closely 6 Diabetes mellitus type 2, present on admission, chronic - A1c 8.6 - Holding home med sitagliptin - Glucose is improved from admission of 277 to low to mid 100s - Continue home Lantus 16 units at bedtime consider increasing outpatient dose given elevated A1c - medium Lispro correction algorithm 7. Generalized weakness. Present on admission - Multifactorial. 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 Hyponatremia. Present on admission - Due to Hypovolemia and should response to Iv fluids. - continue fluids and recheck 9. History of coronary artery disease, present on admission, chronic - Patient with 4 stents placed total last in 2007 - Initially held baby aspirin and clopidogrel - We will restart baby aspirin 11/15 - Restart home statin medication 10. History of falls and Chronic pain, present on admission - Med rec shows oxycodone/acetaminophen - Osteopathic manipulative medicine performed on 11/14/2016 - Discontinue Oxycodone given poor mentation and history of falls as well as likely ischemic colitis secondary to severe obstipation - Tylenol available PRN 11. Hypothyroidism, present on admission, chronic - Restart outpatient levothyroxine 112 g daily 12. Hypertension, present on admission, chronic - Restart home clopidogrel 13. Elevated creatinine kinase, present on admission, resolved - Likely represent early mild Rhabdomyolysis from prolongs time on floor - continue IV fluids - Bowel regimen as needed - Antiemetic as needed Disposition: Patient will likely remain inpatient for the next day while monitoring for significant GI bleed. Physical therapy currently recommends the patient go home with home health physical therapy. Pain Evaluation: Adequate Pain Control GI Prophylaxis: Proton Pump Inhibitor VTE Prophylaxis: Sub-Q Heparin (Unfractionated), SCDs VTE Mechanical Devices: Intermittant Pneumatic CD Resuscitation Status: CPR: Attempt Resuscitation Time spent 35 minutes Attending Statement The patient was seen and examined together with Dr. Sorto on 11/17/16 and I have added additional information to the note above. Germain Velasquez DO Nov 17, 2016 07:38 Alexia Hanson DO Nov 18, 2016 14:07
[2016-11-17] MEDS: Polyethylene Glycol (PEG) 17 Gm Powder PO SCH (15:34)
[2016-11-17 16:23] VITALS: BP 111/57; PULSE 65; RESP 18; O2SAT 94
--- NOTE | 2016-11-17 17:17 | PCM.ANEP2 ---
Post Anesthesia Evaluation ASA/CMS Post Anesthesia VS in Patient's Normal Range?: Yes Resp Stable; Airway Patent?: Yes CV Function & Hydration Stable: Yes Mental Status Recovered?: Yes Pain control Satisfactory?: Yes N/V Control Satisfactory?: Yes Omar Cueto MD Nov 17, 2016 17:17
--- NOTE | 2016-11-17 17:17 | PCM.ANEP1 ---
Post Anesthesia Phase 1 PACU Phase 1 Assessment Date of Service: Nov 15, 2016 Vital Signs Vital Signs Date Time Temp Pulse Resp B/P Pulse Ox O2 Delivery O2 Flow Rate FiO2 11/17/16 16:23 36.6 65 18 111/57 94 Room Air 11/17/16 12:16 37.0 62 20 122/60 94 Room Air Anesthetic Administered: MAC Level of Alertness: Awake, talking BOWIE's with Equal Strength: Yes Pain: No Nausea or Vomiting: No Oxygen Delivery: Nasal Cannula Lungs: Clear to Auscultation, Normal Air Movement Dermatome Level: Full Sensation Omar Cueto MD Nov 17, 2016 17:17
--- NOTE | 2016-11-17 17:54 | NUR ---
GI/ No reports of n/v/d/c or abdominal pain, abdomen distended and patient reports bloating. Bowel tones active, brief on with some dribbling/incontinence episodes. Patient has very pale brown smears with some small camilla blood spots on brief. Administered Miralax, Metamucil and Docusate per MD orders. No BM today. No reports of chest pain/pressure/discomfort. No tele, HR 60s, BP within normal limits.No reports of SOB at rest, reports "a little" SOB with ambulation. SPO2 94% on RA. Denies cough.
[2016-11-17 21:52] VITALS: BP 143/57; PULSE 60; RESP 16; O2SAT 96
[2016-11-17] MEDS: Insulin GLARgine 100 Unit/mL Syringe SUBQ SCH (22:02)
[2016-11-17 23:15] VITALS: BP 142/63; PULSE 59; RESP 17; O2SAT 94
[2016-11-18] MEDS: Heparin 5,000 Unit/mL Inj SUBQ SCH ×2 (01:21→08:50)
[2016-11-18 02:58] LABS: Mean Corpuscular Hemoglobin 29.5 pg (27.0-35.0); Mean Corpuscular Volume 90.8 fL (81-100); Platelet Count 192 bil/L (150-400)
[2016-11-18 03:08] VITALS: BP 150/69; PULSE 62; RESP 17; O2SAT 94
[2016-11-18 03:16] LABS: BASOPHILS % (AUTO) 0.6 % (0-3); EOSINOPHILS % (AUTO) 1.8 % (0-5); MONOCYTES % (AUTO) 8.1 % (4-12); NEUTROPHILS % (AUTO) 66.3 % (40-74)
--- NOTE | 2016-11-18 07:00 | NUR ---
GI/Activity Pt has reported spots of red blood when toileting. Pt has not had a BM during this shift but has felt the urge to have a BM a few times and attempted to have a BM.
[2016-11-18] MEDS: Insulin LISPRO 300 Unit/3 mL Inj SUBQ SCH ×2 (08:00→12:00)
[2016-11-18 08:45] VITALS: BP 133/60; PULSE 61; RESP 16; O2SAT 94
[2016-11-18] MEDS: Pantoprazole 40 mg ER24 Tablet PO SCH (08:50)
[2016-11-18] MEDS: Polyethylene Glycol (PEG) 17 Gm Powder PO SCH (08:50)
[2016-11-18] MEDS: Isosorbide Mononitrate 30 mg ER24 Tablet PO SCH (08:51)
[2016-11-18] MEDS ORDERED: PSYL3.4P5 PO (12:01)
[2016-11-18] MEDS ORDERED: OMEP40CA36 PO (12:01)
[2016-11-18] MEDS ORDERED: POLY17PO6 PO (12:01)
[2016-11-18] MEDS ORDERED: Acetaminophen PO (12:01)
--- NOTE | 2016-11-18 12:12 | PCM.DIMED ---
Discharge Instructions Date of Service Nov 18, 2016 Dates of Hospitalization Nov 13, 2016 at 05:05 Discharge Diagnosis Discharge Diagnosis Upper and lower GI bleed Acute blood loss anemia (stable) Acute on chronic kidney injury Diabetes type II Hyponatremia Hypertension Mild rhabdomyolysis Medication Instructions Please take Benefiber packets with both breakfast and lunch as the stomach doctor states that this will be better for your bowel movements Please do not take any dairy products such as milk or cheese products as these may be irritating your colon Please take MiraLAX daily and use senna as needed for constipation. If you have more than 2 days without a bowel movement please start taking senna immediately. Please stay well hydrated drinking 32-64 ounces daily of water as this will also help decrease her constipation. Diet Heart Healthy, Diabetic Activity Other (gradually return to normal daily activities) Call your provider Fever or Chills, Shortness of breath, Bleeding, Chest pain, Vomitting, Excessive diarrhea, Weakness (unilateral) Patient Instructions Follow-up plan Please follow-up with Dr. Gaston in 6 weeks for a follow-up flexible sigmoidoscopy so that they can reassess if there is healing in the rectal area. [address] [address] Follow-up with PCP in: 1 week (please call [phone] in order to make a follow-up appointment in [facility] with a new primary care physician.) Provider: David Gaston MD Follow-up in: 6 weeks (if an appointment has not already been made please call to schedule an appointment [facility] [phone]) Alexia Hanson DO Nov 18, 2016 11:53
--- NOTE | 2016-11-18 12:18 | PROG NOTE ---
[address] [address] PROGRESS NOTE PATIENT: AUDREY BARBA : 1945 MR#: [id number] ADMIT: 11/13/2016 JOB ID: [id number] DATE: 11/18/2016 SUBJECTIVE: The patient is still having some rectal discomfort. Still seeing a little bit of blood per rectum. Tolerated p.o. OBJECTIVE: Vital signs stable this morning. Blood pressure 133/60. The patient was in no distress. Alert, oriented, appropriate, cooperative, conversational. LABORATORY DATA: His CBC reveals a hemoglobin of 9.6, white count 9.1, normal differential. Stable comprehensive metabolic panel. ASSESSMENT AND PLAN: This is a 71-year-old female with resolving acute ischemic colitis. Histology is still pending. I emphasized the long-term need to keep stools regular and soft so that she does not require digital manipulation to facilitate bowel movements moving forward in the future. The patient is notified that it may take in the order of weeks for all of her symptoms to fully resolve and I would like to see her again for a flexible sigmoidoscopy in six weeks' time. I will continue to follow with you.
--- NOTE | 2016-11-18 13:26 | NUR ---
Social Work Note: Discharge Data& Assessment: EMR reviewed. Per pt is medically improved and ready to discharge home via POV with [facility] and RN to follow. SW met with pt at bedside to confirm discharge plan and assess for any unmet needs. Leda Moore is a 71 year old female admitted on 11/13/2016 for upper GI bleed and dehydration. Per pt is medically improved. PT has recommended home health services with life alert. Pt had been provided with life alert information. JAIME contacted Jonn from [facility] and notified him of pt discharge, F2F faxed. Pt confirmed her daughter will be transporting her home today. Pt denies any other needs. No other discharge need identified. Plan: Per pt is medically improved and ready to discharge home via POV with [facility] and RN to follow. Pt denies any other needs. No other discharge need identified. STEPHEN Vargas
--- NOTE | 2016-11-18 13:53 | NUR ---
Discharge Patient left unit with family and RN via wheelchair in a stable condition. IV DC'd intact, all personal belongings with patient and family, no tele to removed. New bowel regimen medications discussed with next due times -- patient verbalized understanding. Discussed continued medications with next due times in addition to discontinued medications -- patient verbalized understanding. Follow up with Dr. Gaston discussed, patient verbalized she will call to make an appointment.
--- NOTE | 2016-11-18 14:16 | PCM.DC.MED ---
Discharge Summary Date of Service Nov 18, 2016 Dates of Hospitalization Date of Hospital Admission Nov 13, 2016 at 05:05 Date of Discharge: Nov 18, 2016 Providers: Admitting Physician: Neal Norris MD Primary Care Physician: Nopraghavendra Attending Physician: Neal Norris MD Diagnosis at Time of Discharge Diagnosis at Time of Discharge Upper and lower GI bleed Acute blood loss anemia (stable) Acute on chronic kidney injury Diabetes type II Hyponatremia Hypertension Mild rhabdomyolysis Consultations Gastroenterology (Dr. Gaston) Procedures XRay, CTs & MRIs X-RAY CHEST ONE VIEW, PORTABLE 11/13 IMPRESSION: Small left basilar scarring with no significant change. No definite acute cardiopulmonary process. Dictated by: Fermin Rushing A Interpreted: Dorota Rangel MD on 11/13/2016 at 8:38 Transcribed by: LINDA on 11/13/2016 at 8:54 Approved by: Dorota Rangel M.D. on 11/13/2016 at 11:10 CT ABDOMEN AND PELVIS WITHOUT CONTRAST 11/13 IMPRESSION: 1. There are postsurgical changes around the stomach. No definitive CT findings to explain upper GI bleed. 2. Probable mild colonic thickening in the distal transverse colon and proximal descending colon, suggesting mild colitis. In the absence of oral contrast, the finding could be caused by artifact. Recommend clinical correlation. 3. Perirectal right lipomatosis. This finding could be associated ulcerative colitis. Recommend clinical correlation. 4. Cholelithiasis. No evidence for acute cholecystitis. 5. Sigmoid diverticulosis. No active diverticulitis. 6. Small pericardial effusion. No significant discrepancy with the ditch digger radiology preliminary report. Dictated by: Dorota Rangel M.D. on 11/13/2016 at 9:09 Transcribed by: PUNEET on 11/13/2016 at 9:19 Approved by: Dorota Rangel M.D. on 11/13/2016 at 10:48 Other Diagnostics EGD and Colonoscopy ENDOSCOPIC PROCEDURES ENDOSCOPIC DIAGNOSES: 1. Erosive gastropathy. 2. Small sliding hiatal hernia. 3. Noncontiguous patchy proctocolitis.--Injury suggests possible ischemic etiology. 4. Scattered diverticulosis . 5. Mild hemorrhoids. 6. Colon polyp. David Gaston MD 11/16/16 6779 Brief History GASTROENTEROLOGY CONSULTATION NOTE Ms. Moore is a 71 year old woman with history of reported GI bleed, GERD, and CAD s/p stent placement, that presented to [facility] 11/13/16 presenting with a reported being down for two days secondary to increased weakness and inability to walk following a tow day history of coffee-ground emesis and diarrhea with the presence of blood. GI was asked to consult to assist in determining etiology of symptoms. Ms. Moore is a poor historian, and much history is obtained from chart review. Currently, she denies any nausea, vomiting, fever, chills, abdominal pain, further episodes coffee-ground emesis, hematemesis; Admits to noting some blood within her stool, which she still describes as loose and diarrhea, coloration of brown mixed with blood; she estimated amount of blood as approx one teaspoon collectively for all episodes. She is unable to recall events prior to admission, other than she was on her floor for two days unable to move ; a combination of weak and unable to utilize her muscles. She denies hitting her head, but she is unsure of the details. She states she could not reach the phone to call for help. She lives alone in [place], and states that her neighbors are friends that occasionally look after her. She is unable to recall details of her medical history, and states that she has had a colonoscopy and EGD in the past, perhaps 'about 9 years ago,' at [place]. She is unsure if there were any abnormal findings. She initially denied any history of abdominal surgeries, but when questioned about the surgical scars on her examination of her abdomen, she states that Dr. Moya performed a procedure, but she does not recall what had been done. She denies any GI history other than GERD, and thinks she 'maybe' had a similar episode to this admission approx '9 years ago. ' Fluctuates on her answer about other GI history, such as other dx as Crohn's, celiac, ulcerative colitis, with initial response as 'yes,' and later questioning answered as 'no.' Denies any current tobacco or alcohol use, but does admit to marijuana use for sleep. States she has not followed up with a physician in 'a long time,' and denies any chronic or daily use of NSAIDs or ASA. HH has remained stable throughout this hospitalization; stool studies 11/14 negative for screened pathogens. Nursing notes report loose stools. Chart review through [facility] shows a referral for GI with PCP visit in 2011 for uncontrolled GERD, difficulty intake, BLLE weakness and inability to bear weight , with associated extreme fatigue. Seen by surgery clinic, Dr. Valera in 2011 for esophagitis and Hartman's esophagus. Within clinic note, mention of colonoscopy in 2010 that revealed diverticular disease, with recommended FU at 5 years. Other mentions include previous EGD in 2009 with repeat 2011. There is a pathology report for gastric bx in 12/2011, negative for H. pylori, dysplasia, malignancy; positive for reactive gastropathy. Hospital Course Leda Moore is a 71 year old female with a history of GI bleed, GERD, Coronary artery disease with stent placement, and Diabetes presents to [facility] emergency department via EMS after being found down. Hospital Day 5 Patient was admitted for upper and lower GI bleed. The patient's hemoglobin did remain stable throughout her visit. Gastroenterology was consulted and decided to do an EGD and a colonoscopy. Many of the patient's complaints are most likely secondary to constipation along with internal hemorrhoids, diverticulosis, erosive gastropathy, and ischemic colitis. Dr. Gaston has suggested that the patient be placed on twice a day fiber supplements as well as daily MiraLAX. The patient has been explained that it is best that she does not continue consuming dairy as this may be causing some of the irritation to her colon. The patient is placed on a high-fiber diet with daily stool softeners and laxative usage as necessary. The patient has also had her omeprazole increased to 40 mg daily. The patient should follow-up with Dr. Gaston in 6 weeks for a flex sigmoidoscopy to ensure proper healing of the ischemic colitis. The patient has been encouraged to discontinue all narcotic pain medications as this also may be contributing to constipation and hard stools causing irritation to the colon and further GI bleeding. Patient is currently tolerating a soft diet. The patient is being discharged home in stable condition. 1. Upper and lower GI bleeding. Present on admission, stable - Patient reports Coffee ground emesis with some melena. Suspect probable gastritis based off of previous EGD in 2011 - Patient has stool positive for occult blood - Evidence of Hypovolemia at admission without any indications for blood transfusion at this time. Patient may be hemoconcentrated from dehydration - Patient had a significant drop in hemoglobin near admission, however hemoglobin remained stable since - discontinue Protonix drip on 11/14 and start Protonix 40 mg twice a day--> decrease today to omeprazole 40 mg daily - EGD and colonoscopy performed on November 16 results showed mild hemorrhoids, diverticulosis, erosive gastropathy, ischemic colitis all possibly contributing to GI bleed - GI evaluation consistent with severe obstipation resulting in ischemic colitis - GI recommendations include daily fiber supplementation to achieve daily smooth soft stools and repeat sigmoidoscopy in 6 weeks to ensure proper healing of ischemic colitis - Patient has scheduled psyllium daily as well as scheduled MiraLAX daily - Avoid narcotics given constipating risk, the patient has Tylenol available for pain 2. Acute blood loss anemia, not present on admission, stable - Patient reports both dark coffee ground hematemesis and hematochezia, which is consistent with 2 sources of bleeding - Patient appears hemoconcentrated at admission with significant dehydration and acute kidney disease secondary to prerenal azotemia - Patient had a significant drop in hemoglobin near admission, however hemoglobin remained stable since - Anemia panel fails to show iron deficiency, GI blood loss likely not a significantly chronic problem - initially held aspirin and clopidogrel for first 2 days, will restart enteric- coated baby aspirin with breakfast on 11/15 - EGD and colonoscopy results showed mild hemorrhoids, diverticulosis, erosive gastropathy, ischemic colitis all possibly contributing to GI bleed 3. Acute Kidney Injury on chronic kidney disease. Present on admission, treated improving - Records obtained from primary care physician at [facility] in [place] show chronic kidney disease with recommendations for nephrology consultation - Suspect pre renal azotemia for acute kidney injury - Suspect combination of diabetic nephropathy versus hypertensive damage given type II diabetes and history of hypertension and coronary artery disease - Urinalysis positive for blood and protein - Restart outpatient oxybutynin for possible overactive bladder - avoid nephrotoxic insults Holding outpatient lisinopril - Recommend nephrology follow-up as an outpatient given chronic kidney disease borderline stage III 4. Chronic diverticulosis, present on admission - CT abdomen and pelvis without contrast notes diverticulosis, consistent with CT performed in 2015 showing same - Patient has stool positive for occult blood, and reports recent bright red blood - GI consulted and with recommendations discussed above 5. Acute Leukocytosis. Present on admission, under evaluation - No evidence of any infectious process at this time - Patient reports diarrhea, possibly consistent with opiate withdrawal or CT abdomen shows thickening of the colon consistent with possible colitis, as well as lipomatosis and sigmoid diverticulosis - Stool biofire negative - Significant drop in white blood cell count from November 13 to November 14 and significant drop in Procalcitonin from November 14 to November 15 without antibiotic use - monitor closely 6 Diabetes mellitus type 2, present on admission, chronic - A1c 8.6 - Holding home med sitagliptin - Glucose is improved from admission of 277 to low to mid 100s - Continue home Lantus 16 units at bedtime consider increasing outpatient dose given elevated A1c - medium Lispro correction algorithm 7. Generalized weakness. Present on admission - Multifactorial. 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 Hyponatremia. Present on admission - Due to Hypovolemia and should response to Iv fluids. - continue fluids and recheck 9. History of coronary artery disease, present on admission, chronic - Patient with 4 stents placed total last in 2007 - Initially held baby aspirin and clopidogrel - We will restart baby aspirin 11/15 - Restart home statin medication 10. History of falls and Chronic pain, present on admission - Med rec shows oxycodone/acetaminophen - Osteopathic manipulative medicine performed on 11/14/2016 - Discontinue Oxycodone given poor mentation and history of falls as well as likely ischemic colitis secondary to severe obstipation - Tylenol available PRN 11. Hypothyroidism, present on admission, chronic - Restart outpatient levothyroxine 112 g daily 12. Hypertension, present on admission, chronic - Restart home clopidogrel 13. Elevated creatinine kinase, present on admission, resolved - Likely represent early mild Rhabdomyolysis from prolongs time on floor - continue IV fluids - Bowel regimen as needed - Antiemetic as needed Disposition: Physical therapy currently recommends the patient go home with home health physical therapy. Exam Vital Signs (Last) Date Time Temp Pulse Resp B/P Pulse Ox O2 Delivery O2 Flow Rate FiO2 11/18/16 08:45 37.0 61 16 133/60 94 Room Air 11/16/16 16:54 2 Exam Physical Exam: GEN: Patient was awake, alert, responding appropriately to questions HEENT: PERRLA, EOMI, Neck soft supple, trachea midline, nomocephalic/atraumatic , positive hirsutism of the chin CV: +S1/S2, RRR, no murmur auscultated Respiratory: CTAB, no wheezes, rales, rhonchi GI: +bowel sounds x4, soft, compressible, non TTP EXT: no c/c/e Neuro: CN II-XII grossly intact Psych: mood and affect were appropriate Test 11/13/16 01:16 11/13/16 04:55 11/13/16 13:53 11/14/16 02:56 Hematology Comments Rbc Prothrombin Time 9.4sec (8.1-12.5) Prothromb Time International Ratio 0.88ratio Hemoglobin A1c 8.6% (4.8-5.6) Magnesium Level 3.3mg/dL (1.6-2.6) Troponin T 0.010ug/L (0.0-0.011) Urine Color Dark yellow (YELLOW) Urine Appearance Slightly cloudy Urine pH 5.5 (5.0-8.0) Urine Specific [place] 1.025 (1.003-1.035) Urine Protein 30mg/dL (NEG,TRACE) Urine Glucose (UA) Negativemg/dL (NEGATIVE) Urine Ketones Negativemg/dL (NEGATIVE) Urine Occult Blood Negative (NEGATIVE) Urine Nitrite Negative (NEGATIVE) Urine Bilirubin Negative (NEGATIVE) Urine Urobilinogen Normalmg/dL (NORMAL) Urine Leukocyte Esterase Negative (NEGATIVE) Urine RBC 3-10/hpf (0-2) Urine WBC 0-5/hpf (0-5) Urine Epithelial Cells Few/hpf (NONE-MOD) Urine Crystals Amorphous urates (NONE Urine Bacteria None/hpf (NONE-FEW) Urine Hyaline Casts Occasional/lpf (NONE) Urine Granular Casts None seen (NONE SEEN) Urine Waxy Casts None seen (NONE SEEN) Urine Red Blood Cell Casts None seen (NONE SEEN) Urine White Blood Cell Casts None seen (NONE SEEN) Urine Mucus Present (None Seen) Urine Trichomonas None seen (NONE SEEN) Urine Yeast None (NONE SEEN) Urine Culture Reflexed Not indicated Reticulocyte Count,Calculated 2.8% (0.6-2.6) Iron Level 62ug/dL (35-150) Total Iron Binding Capacity 254ug/dL (250-450) Percent Iron Saturation 24%sat (15-50) Unsaturated Iron Binding 191.8ug/dL Ferritin 102ng/mL (13-150) Vitamin B12 Level >1999pg/mL (211-946) Folate > 19.9ng/mL (>3.0) Thyroid Stimulating Hormone (TSH) 2.680uIU/mL (0.450-4.500) Test 11/15/16 07:30 11/16/16 02:30 11/17/16 02:25 11/18/16 02:40 Myelocytes % 1% (0-0) Total Creatine Kinase 70U/L (21-215) Procalcitonin 0.34ng/mL (0.00-0.08) White Blood Count 9.1th/mm3 (3.8-10.1) Red Blood Count 3.25mil/mm3 (3.90-5.20) Hemoglobin 9.6g/dL (12.0-15.6) Hematocrit 29.5% (35.0-46.0) Mean Corpuscular Volume 90.8fL (81-100) Mean Corpuscular Hemoglobin 29.5pg (27.0-35.0) Mean Corpuscular Hemoglobin Concent 32.5% (32.0-37.0) Red Cell Distribution Width 13.0% (12.3-15.4) Platelet Count 192bil/L (150-400) Neutrophils (%) (Auto) 66.3% (40-74) Lymphocytes (%) (Auto) 21.2% (14-46) Monocytes (%) (Auto) 8.1% (4-12) Eosinophils (%) (Auto) 1.8% (0-5) Basophils (%) (Auto) 0.6% (0-3) Band Neutrophils % 2% (1-5) Sodium Level 139mEq/L (134-144) Potassium Level 3.6mEq/L (3.5-5.2) Chloride Level 104mEq/L (97-108) Carbon Dioxide Level 21mmol/L (18-29) Blood Urea Nitrogen 14mg/dL (8-27) Creatinine 1.34mg/dL (0.57-1.00) Estimat Glomerular Filtration Rate 56mL/min (>59) Glucose Level 127mg/dL (60-99) Calcium Level 8.2mg/dL (8.5-10.1) Total Bilirubin 0.3mg/dL (0.0-1.2) Aspartate Amino Transf (AST/SGOT) 32U/L (0-50) Alanine Aminotransferase (ALT/SGPT) 18U/L (0-32) Alkaline Phosphatase 73U/L (25-165) Total Protein 5.8g/dL (6.4-8.4) Albumin 2.7g/dL (3.4-5.0) Microbiology Results Stool biofire negative for pathology Discharge Medications Discharge Medications Amlodipine (Amlodipine) 10 Mg Tablet 10 MG PO DAILY (Reported) Aspirin (Aspirin) 81 Mg Tablet 81 MG PO DAILY (Reported) Atorvastatin (Lipitor) 40 Mg Tablet 40 MG PO HS (Reported) Carvedilol (Carvedilol) 6.25 Mg Tablet 6.25 MG PO BID (Reported) Cholecalciferol (Vitamin D3) (Vitamin D3) 1,000 Unit Tab.chew 1,000 UNIT PO DAILY (Reported) Clopidogrel (Clopidogrel) 75 Mg Tablet 75 MG PO DAILY (Reported) Insulin Glargine (Lantus U100 Solostar Insulin Pen) 100 Unit/1 Ml Insuln.pen 16 UNIT SUBQ DAILY (Reported) Isosorbide MN ER (Isosorbide MN ER) 30 Mg Tab.er.24h 30 MG PO DAILY (Reported) Levothyroxine (Levothyroxine) 112 Mcg Tablet 112 MCG PO QAM (Reported) Metoclopramide (Metoclopramide) 5 Mg Tablet 5 MG PO ACHS (Reported) Omeprazole (Omeprazole) 40 Mg Capsule.dr 40 MG PO DAILY Prescribed by: ALEXIA HANSON DO Oxybutynin Chloride ER (Ditropan XL) 5 Mg Tab.er.24 5 MG PO DAILY (Reported) Polyethylene Glycol 3350 (Miralax) 17 Gm Powd.pack 17 GM PO DAILY Prescribed by: ALEXIA HANSON DO Psyllium Husk/Aspartame (Metamucil Fiber Singles Packet) 3.4 Gm Powd.pack 1 PACKET PO BIDBL Prescribed by: ALEXIA HANSON DO Sitagliptin Phos (Januvia) 50 Mg Tablet 50 MG PO DAILY (Reported) Sodium Bicarbonate (Sodium Bicarbonate) 650 Mg Tablet 650 MG PO TID (Reported) Tamsulosin (Flomax) 0.4 Mg Capsule 0.4 MG PO HS (Reported) As needed ([Acetaminophen]) 325 MG TABLET 975 MG PO Q6H PRN PRN For Mild Pain or Fever Prescribed by: ALEXIA HANSON DO Albuterol HFA (Proair HFA) 8.5 Gm Hfa.aer.ad 2 PUFFS INHALATION Q4H PRN PRN For Wheezing (Reported) Nitroglycerin SL (Nitroglycerin SL) 0.4 Mg Tab.subl 0.4 MG SL Q5MIN PRN PRN For Chest Pain (Reported) Sennosides (Senna) 8.6 Mg Tablet 8.6 MG PO BID PRN PRN For Constipation ( Reported) Additional med instructions Please take Benefiber packets with both breakfast and lunch as the stomach doctor states that this will be better for your bowel movements Please do not take any dairy products such as milk or cheese products as these may be irritating your colon Please take MiraLAX daily and use senna as needed for constipation. If you have more than 2 days without a bowel movement please start taking senna immediately. Please stay well hydrated drinking 32-64 ounces daily of water as this will also help decrease her constipation. Followup Plan Follow-up plan Please follow-up with Dr. Gaston in 6 weeks for a follow-up flexible sigmoidoscopy so that they can reassess if there is healing in the rectal area. [facility] [address] [place] [address] Discharge Diet: Heart Healthy, Diabetic Discharge Activity: Other (gradually return to normal daily activities) Follow-up with PCP in: 1 week (please call [phone] in order to make a follow-up appointment in [facility] with a new primary care physician.) Provider: David Gaston MD Follow-up in: 6 weeks (if an appointment has not already been made please call to schedule an appointment [facility] [phone]) Alexia Hanson DO Nov 18, 2016 12:12
--- NOTE | 2016-11-27 15:06 | PATH ---
SURGICAL PATHOLOGY Attending Physician:Elvis Tony CASE STATUS: Signed Out * Amended * PATIENT NAME: AUDRYE BARBA PID: [id number] : 1945 DATE COLLECTED:11/16/2016 00:00 SPECIMEN: 1: Gastric, Biopsy 2: Colon, Biopsy 3: Colon, Biopsy 4: Colon, Biopsy 5: Colon, Biopsy 6: Rectum, Biopsy CLINICAL HISTORY: 1). GASTRIC BIOPSY 2). RIGHT COLON BIOPSY 3). TRANSVERSE COLON BIOPSY 4). TRANSVERSE COLON POLYP 5). SPLENIC FLEXURE BIOPSY 6). RECTAL BIOPSY FINAL DIAGNOSIS: 1. Gastric Biopsy: Superficial portion of gastric fundic antral mucosa with mild chronic active gastritis. Negative for H. pylori organisms by immunohistochemistry studies. 2. Right Colon, Biopsy: Superficial portion of colorectal mucosa with no significant histomorphologic abnormality. 3. Transverse Colon, Biopsy: Active colitis. Please see comment. No dysplasia identified. 4. Transverse Colon, Polyp, Biopsy: Tubular adenoma; negative for high-grade dysplasia. 5. Splenic Flexure Biopsy: Active colitis with detached fragments of fibrinopurulent exudate and focal, possible ulceration. No dysplasia identified. Please see comment. 6. Rectum, Biopsy: Active colitis with small, detached fragments of fibrinopurulent exudate. No dysplasia identified. Please see comment. ICD10 K52.9 This case was reviewed and interpreted by Dr. Danette Mejia. The final diagnosis is unchanged. This amendment is issued in order for the report to cross the interface and be available in the hospital electronic medical record. NOTE: 3) Sections demonstrate superficial portions of colorectal mucosa with a mildly distorted crypt architecture. Dilated crypt abscesses are present and there are increased neutrophils, lymphocytes, and plasma cells within the lamina propria. No granulomas or regions of dysplasia are identified. The differential diagnosis includes an acute self-limited bacterial colitis, the effect of NSAID use, and idiopathic inflammatory bowel disease, in the appropriate clinical setting. 5 and 6) Sections demonstrate superficial portions of colorectal mucosa with mild crypt architectural distortion and increased neutrophils within the lamina propria. Crypt abscesses are present and there is evidence of possible mucosal ulceration in part 5 (splenic flexure biopsy). No viral cytopathic effect is identified. No granulomas or regions of dysplasia are identified. The differential diagnosis includes NSAID use, an acute self-limited bacterial colitis, and idiopathic inflammatory bowel disease, in the appropriate clinical setting. GROSS DESCRIPTION: The specimen is received in six formalin filled containers labeled with the patient's name. 1). The specimen is sublabeled "gastric" and consists of a 0.2 x 0.2 x 0.2 CM portion of tissue which is entirely submitted in cassette 1A. 2). The specimen is sublabeled "R. colon" and consists of a 0.3 x 0.2 x 0.2 CM portion of tissue which is entirely submitted in cassette 2A. 3). The specimen is sublabeled "transverse colon" and consists of a 0.2 x 0.2 x 0.2 CM portion of tissue which is entirely submitted in cassette 3A. 4). The specimen is sublabeled "transverse colon polyp" and consists of a 0.3 x 0.2 x 0.2 CM portion of tissue which is entirely submitted in cassette 4A. 5). The specimen is sublabeled "splenic flexure" and consists of 2 portions of tissue which aggregate to 0.3 x 0.3 x 0.2 CM. The specimen is entirely submitted in cassette 5A. 6). The specimen is sublabeled "rectal" and consists of a 0.2 x 0.2 x 0.2 CM portion of tissue which is entirely submitted in cassette 6A. 11/17/2016 DAC MICRO DESCRIPTION: 1A. H.pylori immunostain: Negative This test was developed and its performance characteristics determined by [employer] It has not been cleared or approved by the U.S. Food and Drug Administration. The FDA has determined that such clearance or approval is not necessary. This test is used for clinical purposes. It should not be regarded as investigational or for research. ICD-9 CODES: CPT CODES: 1: 56473, 83773 2: 70717 3: 72374 4: 31801 5: 19447 6: 68276 AMENDMENT(S): Amended: 11/27/2016 by Nadia Hunter Reason:Miscellaneous The final diagnosis is unchanged. This amendment is issued in order for the report to cross the interface and be available in the hospital electronic medical record. Previous Signout Date: 11/21/2016 Electronically Signed Out Leni Grant MD [facility] [address] [place] [address], [place] [address] Technical component performed at [facility], [address], , [address]
== END 2016-11-18 13:50 | disposition home or self-care (01) | DRG 378 ==
LOC: EDBD 00:36 → SED 00:36 → PCC 05:05
PROVIDERS: ADMIT Hospitalist; ATTEND Hospitalist
PROC: 7W03X1Z Osteopathic Treatment of Lumbar Region using Fascial Release (ICD-10-PCS; 2016-11-14)
PROC: 0DB68ZX Excision of Stomach, Via Natural or Artificial Opening Endoscopic, Diagnostic (ICD-10-PCS; principal; 2016-11-16 15:00)
PROC: 0DBE8ZX Excision of Large Intestine, Via Natural or Artificial Opening Endoscopic, Diagnostic (ICD-10-PCS; 2016-11-16 15:00)
DX: K29.71 Gastritis, unspecified, with bleeding (principal); E87.1 Hypo-osmolality and hyponatremia; D62 Acute posthemorrhagic anemia; N17.8 Other acute kidney failure; K57.91 Diverticulosis of intestine, part unspecified, without perforation or abscess with bleeding; K92.1 Melena; Z95.5 Presence of coronary angioplasty implant and graft; Z79.82 Long term (current) use of aspirin; Z79.84 Long term (current) use of oral hypoglycemic drugs; Z87.891 Personal history of nicotine dependence; M62.81 Muscle weakness (generalized); N18.9 Chronic kidney disease, unspecified; I25.10 Atherosclerotic heart disease of native coronary artery without angina pectoris; G89.29 Other chronic pain; E03.9 Hypothyroidism, unspecified; I12.9 Hypertensive chronic kidney disease with stage 1 through stage 4 chronic kidney disease, or unspecified chronic kidney disease; I25.2 Old myocardial infarction; K56.41 Fecal impaction; E86.1 Hypovolemia; E11.21 Type 2 diabetes mellitus with diabetic nephropathy; K92.0 Hematemesis; D72.829 Elevated white blood cell count, unspecified; Z91.81 History of falling